=== PATIENT | female | born 1940 | race Asian ===

== ENCOUNTER 2017-01-02 09:00 | Outpatient (CLI) | payer MEDICARE, OTHER | END 2017-01-02 09:01 | disposition home or self-care (01) | DX: J98.4 Other disorders of lung (principal) ==

== ENCOUNTER 2017-02-06 09:02 | Outpatient (CLI) | payer MEDICARE, OTHER ==
[2017-02-06] MEDS ORDERED: IOPAMIDOL-300 50 ML VIAL IVP ONE (11:06)
== END 2017-02-06 09:03 | disposition home or self-care (01) ==
DX: R91.1 Solitary pulmonary nodule (principal); E78.5 Hyperlipidemia, unspecified; J43.9 Emphysema, unspecified
CPT/HCPCS: 36415; 71260; 80053; 80061; 85025; Q9967

== ENCOUNTER 2017-10-03 11:32 | Outpatient (CLI) | payer MEDICARE, OTHER ==
--- NOTE | 2017-10-05 08:34 | Mammography Report ---
EXAM: DIGITAL BILATERAL SCREENING MAMMOGRAM: 10/04/2017 CLINICAL INDICATION: A 77-year-old, for screening. COMPARISON: 08/2016, 06/2015, 04/2014, 04/2013, 03/2012, 03/2011, 03/2010. TECHNIQUE: Routine CC and MLO projections were obtained of the breasts. FINDINGS: The breasts again demonstrate heterogeneously dense fibroglandular parenchyma bilaterally. Coarse, typically benign calcifications are present. No suspicious masses, clustered microcalcifications, or regions of architectural distortion are identified. IMPRESSION: BENIGN FINDINGS. RECOMMENDATIONS: Routine annual screening unless otherwise clinically indicated. BIRADS CATEGORY 2-BENIGN FINDINGS. STANDARD QUALIFYING STATEMENTS: 1. This examination was reviewed with the aid of Computer-Aided Detection (CAD). 2. A negative or benign imaging report should not delay biopsy if clinically suspicious findings are present. Consider surgical consultation if warranted. More than 5% of cancers are not identified by imaging. 3. Dense breasts may obscure an underlying neoplasm. TD: 10/04/2017 16:28 AJIT
== END 2017-10-03 11:33 | disposition home or self-care (01) ==
LOC: DI 11:32
PROVIDERS: ATTEND Physician Assistant Medical
DX: Z12.31 Encounter for screening mammogram for malignant neoplasm of breast (principal)
CPT/HCPCS: 77067

== ENCOUNTER 2018-02-10 16:44 | Inpatient (IN) | payer MEDICARE, OTHER ==
[2018-02-10] MEDS ORDERED: MORPHINE 10 MG/ML VIAL IVP STA (17:21)
--- NOTE | 2018-02-10 17:22 | ED Physician Documentation ---
PD HPI ABD PAIN - Stated complaint Stated Complaint: ABD PX - Chief complaint Chief Complaint: Abd Pain - History obtained from History obtained from: Patient - History of Present Illness Timing - onset: Today Timing - duration: Days (4) Timing - details: Gradual onset Pain level max: 8 Pain level now: 8 Quality: Aching, Pain Location: All over / everywhere Radiation: Other (non-radiating) Improved by: Other (nothing) Worsened by: Moving, Palpation Associated symptoms: No: Fever, Nausea, Vomiting, Hematemesis, Diarrhea, Constipation, Melena, Hematochezia, Dysuria, Hematuria Similar symptoms before: Has not had sx before Recently seen: Not recently seen Review of Systems Ten Systems: 10 systems reviewed and negative Constitutional: denies: Fever, Chills Ears: denies: Ear pain Nose: denies: Rhinorrhea / runny nose, Congestion Throat: denies: Sore throat Respiratory: denies: Cough GI: denies: Nausea, Vomiting, Diarrhea, Hematemesis, Bloody / black stool : denies: Dysuria Skin: denies: Rash Musculoskeletal: denies: Neck pain, Back pain Neurologic: denies: Headache PD PAST MEDICAL HISTORY - Past Medical History Cardiovascular: High cholesterol Respiratory: COPD Musculoskeletal: Osteoarthritis - Past Surgical History General: Appendectomy HEENT: Tonsil/Adenoidectomy - Present Medications Home Medications: Ambulatory Orders Medication Instructions Recorded Confirmed Albuterol [Proventil Hfa] 1 puffs INH Q4-6H 04/23/13 09/22/15 Multivitamin [Multivitamins] 1 each PO DAILY 04/23/13 09/22/15 Ipratropium/Albuterol Inhaler 1 puffs INH QID 04/24/13 09/22/15 [Combivent Inhaler] Potassium 500 mg PO DAILY 04/24/13 09/22/15 [place]-3 Fatty Acids [Fish Oil] 1,200 mg PO DAILY 09/22/15 09/22/15 - Allergies Allergies/Adverse Reactions: Allergies Allergy/AdvReac Type Severity Reaction Status Date / Time Penicillins Allergy Severe shock Verified 02/10/18 16:59 venom-honey bee Allergy unknown Verified 02/10/18 16:59 [bee venom (honey bee)] alcohol AdvReac unknown Verified 02/10/18 16:59 PD ED PE NORMAL - Vitals Vital signs reviewed: Yes - General General: Alert and oriented X 3, No acute distress - HEENT HEENT: Moist mucous membranes - Neck Neck: Supple, no meningeal sign - Cardiac Cardiac: RRR, Strong equal pulses - Respiratory Respiratory: No respiratory distress, Clear bilaterally - Abdomen Abdomen: Other (Diffusely tender to palpation. There is guarding and rebound) - Back Back: No CVA TTP, No spinal TTP - Derm Derm: Warm and dry, No rash - Extremities Extremities: No edema, No calf tenderness / cord - Neuro Neuro: Alert and oriented X 3 - Psych Psych: Normal mood, Normal affect Results - Vitals Vitals: Vital Signs - 24 hr 02/10/18 02/10/18 16:55 19:25 Temperature 36.8 C 36.4 C L Heart Rate 98 86 Respiratory 14 16 Rate Blood Pressure 130/39 L 120/67 O2 Saturation 98 93 Oxygen O2 Source Room air - Labs Labs: Laboratory Tests 02/10/18 02/10/18 02/10/18 17:30 17:30 18:03 WBC 9.3 RBC 4.18 L Hgb 13.7 Hct 40.7 MCV 97.4 MCH 32.8 H MCHC 33.7 RDW 13.2 Plt Count 284 MPV 7.3 L Neut # 7.7 H Lymph # 1.2 L Sunflower # 0.3 Eos # 0.1 Baso # 0.1 Absolute Nucleated RBC 0.01 Nucleated RBC % 0.1 Sodium 137 Potassium 3.3 L Chloride 101 Carbon Dioxide 27 Anion Gap 9.0 BUN 16 Creatinine 0.3 L Estimated GFR (MDRD) 216 Glucose 115 H Calcium 8.8 Total Bilirubin 0.2 AST 21 ALT 11 Alkaline Phosphatase 52 Total Protein 6.2 L Albumin 3.5 Globulin 2.7 Albumin/Globulin Ratio 1.3 Lipase 20 L Urine Color YELLOW Urine Clarity HAZY Urine pH 6.5 Ur Specific [place] 1.015 Urine Protein NEGATIVE Urine Glucose (UA) NEGATIVE Urine Ketones NEGATIVE Urine Occult Blood NEGATIVE Urine Nitrite NEGATIVE Urine Bilirubin NEGATIVE Urine Urobilinogen 0.2 (NORMAL) Ur Leukocyte Esterase NEGATIVE Urine RBC 0-5 Urine WBC 4-5 Ur Squamous Epith Cells MANY Squamous H Urine Bacteria Many H Ur Microscopic Review INDICATED Urine Culture Comments NOT INDICATED - Rads (name of study) CT abd/pelvis Radiology: Prelim report reviewed, EMP read contemporaneously, See rad report ( Small volume pneumoperitoneum indicating hollow viscus perforation. The site of perforation is not identified. Evaluation is limited by marked paucity of intra- abdominal fat. Pancolonic diverticulosis. No convincing area of focal colon wall thickening. ) PD MEDICAL DECISION MAKING - ED course Complexity details: reviewed results, re-evaluated patient, considered differential, d/w patient, d/w family, d/w [facility] consultant (1840 - Dr. Hammer ( surgery bone char operator) and recommends IV cipro and flagyl. Will be in to see pt and take to OR.) ED course: Patient is a 77-year-old female who presents to the emergency department with peritonitis. Has pneumoperitoneum, likely from a hollow viscus perforation. She has anaphylactic to penicillin, therefore discussed antibiotic choice with Dr. Hammer, surgery on-call who recommends Cipro and Flagyl. This was given to the patient. Pain well controlled. 2 IVs were started and IV fluids given. Dr. Hammer will take her to the operating room. This document was made in part using voice recognition software. While efforts are made to proofread this document, sound alike and grammatical errors may occur. Departure - Departure Disposition: [facility] DC/Rosalind Clinical Impression: Perforated abdominal viscus Condition: Stable Discharge Date/Time: 02/10/18 20:10
[2018-02-10] MEDS ORDERED: IOPAMIDOL-300 50 ML VIAL ONE (17:32)
[2018-02-10] MEDS ORDERED: IOPAMIDOL-300 100 ML VIAL ONE (17:33)
[2018-02-10] MEDS ORDERED: IOPAMIDOL-300 50 ML VIAL PO ONE (17:40)
[2018-02-10] MEDS: IOPAMIDOL-300 100 ML VIAL IVP ONE ×3 (17:41→18:28)
[2018-02-10 17:49] LABS: BASOPHILS # (AUTO) 0.1 10^3/uL (0.0-0.1); BASOPHILS % (AUTO) 0.7 %; EOSINOPHILS # (AUTO) 0.1 10^3/uL (0.0-0.7); HGB - HEMOGLOBIN 13.7 g/dL (12.0-16.0); LYMPHOCYTES # (AUTO) 1.2 10^3/uL (1.5-3.5); LYMPHOCYTES % (AUTO) 13.1 %; MEAN CORPUSCULAR HEMOGLOBIN 32.8 pg (27.0-31.0); MEAN CORPUSCULAR HGB CONC 33.7 g/dL (32.0-36.0); MEAN CORPUSCULAR VOLUME 97.4 fL (81.0-99.0); MEAN PLATELET VOLUME 7.3 fL (7.9-10.8); MONOCYTES # (AUTO) 0.3 10^3/uL (0.0-1.0); MONOCYTES % (AUTO) 2.7 %; NEUTROPHILS # (AUTO) 7.7 10^3/uL (1.5-6.6); NEUTROPHILS % (AUTO) 82.5 %; PLT - PLATELET COUNT 284 10^3/uL (130-450); RED BLOOD COUNT 4.18 10^6/uL (4.20-5.40); RED CELL DISTRIBUTION WIDTH 13.2 % (12.0-15.0); WHITE BLOOD COUNT 9.3 x10^3/uL (4.8-10.8)
[2018-02-10 18:03] LABS: ALBUMIN 3.5 g/dL (3.2-5.5); ALBUMIN/GLOBULIN RATIO 1.3 (1.0-2.2); BILIRUBIN,TOTAL 0.2 mg/dL (0.2-1.0); CALCIUM 8.8 mg/dL (8.5-10.3); CREATININE 0.3 mg/dL (0.4-1.0); TOTAL PROTEIN 6.2 g/dL (6.7-8.2)
[2018-02-10 18:09] LABS: BILIRUBIN,URINE NEGATIVE (NEGATIVE); GLUCOSE, URINE (UA) NEGATIVE (NEGATIVE); KETONES,URINE (UA) NEGATIVE (NEGATIVE); LEUKOCYTE ESTERASE, URINE NEGATIVE (NEGATIVE); NITRITE,URINE NEGATIVE (NEGATIVE); OCCULT BLOOD,URINE NEGATIVE (NEGATIVE); PH,URINE 6.5 PH (5.0-7.5); PROTEIN,URINE NEGATIVE (NEGATIVE); UROBILINOGEN,URINE 0.2 (NORMAL) E.U./dL (NORMAL)
[2018-02-10 18:12] LABS: CLARITY,URINE HAZY (CLEAR)
[2018-02-10 18:25] LABS: BACTERIA,URINE Many /HPF (None Seen); RBC,URINE 0-5 /HPF (0-5); SQUAMOUS EPITHELIAL CELL,UR MANY Squamous (<= Few)
[2018-02-10] MEDS ORDERED: metroNIDAZOLE 500 MG/100 ML 500 MG/100 ML BAG IV ONE (18:43)
[2018-02-10] MEDS ORDERED: cefOXitin 1 GM in SODIUM CHLORIDE 0.9% MINIBAG 100 ML IV STA (18:43)
[2018-02-10] MEDS ORDERED: SODIUM CHLORIDE 0.9% 1,000 ML IV ONE (18:45)
[2018-02-10] MEDS ORDERED: CIPROFLOXACIN 400 MG/200 ML 200 ML IV ONE (18:45)
--- NOTE | 2018-02-10 19:08 | CT Report ---
EXAM: CT ABDOMEN AND PELVIS EXAM DATE: 02/10/2018 06:24 PM. CLINICAL HISTORY: Diffuse abdominal pain COMPARISONS: 07/10/2015. TECHNIQUE: Routine helical CT imaging was performed through the abdomen and pelvis. IV contrast: 100 mL Isovue-300. Enteric contrast: Yes. Reconstructions: Coronal and sagittal. In accordance with CT protocol optimization, one or more of the following dose reduction techniques w ere utilized for this exam: automated exposure control, adjustment of mA and/or KV based on patient s ize, or use of iterative reconstructive technique. FINDINGS: Lung Bases: Unremarkable. Liver: Similar distribution of innumerable tiny cystic foci scattered throughout the liver. Gallbladder/Bile Ducts: No gallbladder distention or visualized stones. Unchanged borderline dilated CBD measuring 7 mm (upper limits normal 6 mm), not unusual at this patient's age. Spleen: Normal. Pancreas: Normal. Adrenal Glands: Normal. Kidneys and Ureters: Multiple small bilateral renal cysts. Mild right hydronephrosis extending to the renal pelvis, without evident obstructing lesion or stone. Peritoneal Cavity/Bowel: Small volume scattered pneumoperitoneum, most pronounced beneath the hemidia phragms. Enteric contrast reaches the mid small bowel. Pancolonic diverticulosis. Limited evaluation of the colon wall due to marked paucity of intra-abdominal fat and absence of enteric contrast in the area. No convincing focal colon wall thickening. No focal extravasation of enteric contrast is seen. Scattered mildly dilated loops of small bowel interspersed with normal caliber loops, likely represe nting ileus. The appendix is not seen. Pelvic Organs: The bladder and visualized pelvic organs are within normal limits. Vasculature: Extensive atherosclerotic calcifications within the aorta and iliac arteries. Bones: Mild right convex curvature centered at L2-L3. Moderate to severe multilevel facet arthropathy in the mid/lower lumbar spine with unchanged associated grade 1 anterolisthesis at L4-L5. No acute b garett abnormality. Other: None. IMPRESSION: 1. Small volume pneumoperitoneum indicating hollow viscus perforation. The site of perforation is not identified. Evaluation is limited by marked paucity of intra-abdominal fat. 2. Pancolonic diverticulosis. No convincing area of focal colon wall thickening. RADIA The above findings were discussed with Sandro Segura by Dr. Alissa Barnes at 18:59 Hrs on 02/10/18. Referring Provider Line: [phone] SITE ID: [id number]
[2018-02-10] MEDS ORDERED: BUPIVACAINE 0.25%-EPI 1:200000 PF 30 ML VIAL ONE (20:28)
[2018-02-10] MEDS ORDERED: SODIUM CHLORIDE FLUSH 0.9% 10 ML SYRINGE IVP PRN (20:56)
[2018-02-10] MEDS ORDERED: NEOSTIGMINE 1 MG/1 ML 10 ML MDV IVP ONE (21:00)
[2018-02-10] MEDS ORDERED: PROPOFOL 200 MG/20 ML VIAL IVP ONE (21:00)
[2018-02-10] MEDS ORDERED: LIDOCAINE-MPF 2% 5 ML VIAL IM ONE (21:00)
[2018-02-10] MEDS ORDERED: DEXAMETHASONE 4 MG/ML VIAL IVP ONE (21:00)
[2018-02-10] MEDS ORDERED: ePHEDrine 50 MG/ML AMP IVP ONE (21:00)
[2018-02-10] MEDS ORDERED: FLUMAZENIL 0.1 MG/1 ML 5 ML MDV IVP ONE ×2 (21:00→23:25)
[2018-02-10] MEDS ORDERED: GLYCOPYRROLATE 1 MG/5 ML VIAL IVP ONE (21:00)
[2018-02-10] MEDS ORDERED: SUCCINYLCHOLINE 200 MG/10 ML VIAL IVP ONE (21:00)
[2018-02-10] MEDS ORDERED: ACETAMINOPHEN 1,000 MG/100 ML VIAL IV ONE (21:00)
[2018-02-10] MEDS ORDERED: fentaNYL 100 MCG/2 ML VIAL IVP ONE (21:00)
[2018-02-10] MEDS ORDERED: PHENYLEPHRINE 50 MG/5 ML VIAL IV ONE (21:00)
[2018-02-10] MEDS ORDERED: MIDAZOLAM 2 MG/2 ML VIAL IVP ONE (21:00)
[2018-02-10] MEDS ORDERED: ROCURONIUM 50 MG/5 ML VIAL IVP ONE (21:00)
[2018-02-10] MEDS ORDERED: BUPIVACAINE 0.25%-EPI 1:200000 PF 10 ML VIAL SUBQ ONE ×2 (21:01)
[2018-02-10] MEDS ORDERED: LACTATED RINGERS 1,000 ML IV ONE ×2 (21:02→22:49)
[2018-02-10] MEDS ORDERED: TEMAZEPAM 15 MG CAPSULE PO PRN (21:27)
[2018-02-10] MEDS ORDERED: IPRATROPIUM 0.2 MG/ML NEB INH PRN (21:27)
[2018-02-10] MEDS ORDERED: PANTOPRAZOLE 40 MG VIAL IVP ONE (21:32)
[2018-02-10] MEDS ORDERED: PANTOPRAZOLE 40 MG VIAL ONE (21:33)
[2018-02-10] MEDS ORDERED: IPRATROPIUM/ALBUTEROL 3 ML NEB INH PRN (21:52)
[2018-02-10] MEDS ORDERED: D5.45NS W/20 MEQ KCL 1,000 ML IV SCH (22:00)
[2018-02-10] MEDS ORDERED: ONDANSETRON 4 MG/2 ML VIAL IVP PRN (23:02)
[2018-02-10] MEDS ORDERED: HYDROmorphone 0.5 MG/0.5 ML SYRINGE IVP PRN ×2 (23:02→23:05)
[2018-02-10] MEDS ORDERED: HYDROmorphone 0.5 MG/0.5 ML SYRINGE ONE (23:03)
[2018-02-10] MEDS ORDERED: ALBUTEROL INH SCH (23:15)
[2018-02-10] MEDS ORDERED: ALBUTEROL 6.7 GM INHALER INH SCH (23:15)
[2018-02-10] MEDS ORDERED: IPRATROPIUM INH SCH (23:15)
[2018-02-10] MEDS ORDERED: NS W/20 MEQ KCL 1,000 ML IV SCH (23:45)
[2018-02-10] MEDS ORDERED: NICOTINE 7 MG PATCH TOP SCH (23:45)
--- NOTE | 2018-02-10 23:53 | OPERATIVE REPORT ---
DATE OF SERVICE: 02/10/2018 Physician: Diego Hammer MD PREOPERATIVE DIAGNOSIS: Perforated viscus. POSTOPERATIVE DIAGNOSES 1. Perforated prepyloric gastric ulcer with diffuse peritonitis. 2. Bilateral inguinal hernias. NAME OF PROCEDURE 1. Laparoscopic omental patch of prepyloric ulcer. 2. Esophagogastroduodenoscopy with biopsy, with this report dictated separately. OPERATING SURGEON: Diego Hammer MD ANESTHESIA: General. INDICATIONS FOR PROCEDURE: Patient is a 77-year-old female who presents with a 5-day history of abdominal pain. It became more severe today, and therefore, she came to the hospital. CT scan of the abdomen and pelvis shows free air with no obvious source of her perforation. She is on aspirin 325 mg daily, along with smoking. FINDINGS AT SURGERY: Patient had a 1 cm perforated prepyloric ulcer. It was repaired with an omental patch. Upon performing the esophagogastroduodenoscopy, there was no air leak noted from the patch closure. Patient had bilateral inguinal hernias being present, containing no intra-abdominal structures. PROCEDURE: After informed consent was obtained, patient was taken to the operating room and placed in supine position. General endotracheal anesthesia was administered. Patient's abdomen was then prepped and draped in the usual sterile fashion. An infraumbilical incision was made in the skin using a scalpel. A 12 mm Optiview trocar was then inserted through the incision, through to the fascia, and into abdominal cavity under direct vision. The abdomen was then insufflated. Looking inside, no injuries were noted. A 5 mm port was placed on either side of the midline under direct vision. Looking inside, there is free purulent fluid throughout the abdomen, which was suctioned out. Patient was found to have a perforated prepyloric ulcer anteriorly. A fourth port was placed in the left lower quadrant, being 5 mm in size. Next, using interrupted 3-0 Vicryl sutures, sutures were placed transversely, seromuscular, proximal and distal to the perforated ulcer. Next, an end of omentum was then brought up over top of the ulcer with the sutures then being tied. Next, an esophagogastroduodenoscopy was then performed. It did not show any narrowing of the pylorus. The ulcer was closed. There was no air leak noted from the closure site. The EGD was then completed with op note done separately to this note. The abdomen was then copiously irrigated until the return fluid was clear. A 19 round CYDNEY drain was placed through one of the port sites on the right side and up by the closure site. It was secured to the skin using 3-0 nylon suture. The ports were then removed. No bleeding was noted at the port sites, with the abdomen then being desufflated. The umbilical fascial defect was closed using 0 Vicryl sutures. Skin incisions were closed using 4-0 Monocryl subcuticular stitch. Dermabond was then placed upon the incision sites. Patient was then awakened and taken from the operating room, intubated. ESTIMATED BLOOD LOSS: 25 mL COMPLICATIONS: None. CONDITION OF PATIENT AT END OF PROCEDURE: Stable. SPECIMENS: Fluid for Gram stain, culture and sensitivity. DRAINS OR PACKS: One drain was left intra-abdominally. CLASSIFICATION OF WOUND: Dirty. TD: 02/10/2018 23:52 AJIT
--- NOTE | 2018-02-11 00:09 | HISTORY & PHYSICAL EXAMINATION ---
Chief Complaint - Chief Complaint Chief Complaint: Abdominal pain History of Present Illness - Admitted From Admitted From:: home - History Obtained From History obtained from: patient, son, ED physician - History of Present Illness HPI Comment/Other: Mrs. Alison Javed is a pleasant 77-year-old lady who unfortunately has been having some abdominal pain over the last several days. Her son lives out of town and relates that she has been come complaining of dyspepsia and constipation for about 4 days. He also notes that a few weeks ago the patient began complaining of not feeling right and she has not gotten back to her baseline since then. In part because of her recent complaints her son came to see her today and while he was visiting the patient complained of some significant abdominal pain. She took some aspirin and laid down but the pain continued to worsen and so the son brought her to the [facility] emergency department where it was found that she has a perforated bowel. Mrs. Javed also has a long history of COPD and continues to smoke despite this. The patient has been taken to the operating room for surgical repair and will be admitted to the intensive care unit following her surgery. History - Past Medical History Cardiovascular: reports: High cholesterol Respiratory: reports: COPD, Emphysema Musculoskeletal: reports: Osteoarthritis - Past Surgical History General: reports: Appendectomy HEENT: reports: Tonsil/Adenoidectomy - Family & Social History Family History: Mother: (The father was quite elderly and of natural causes according to the patient's son. There is no history of hypertension, hypercholesterolemia, myocardial infarction, CVA, or diabetes to the best of his knowledge), Cancer, Father: Living arrangement: At home Living Situation: Alone - Substance History Use: Uses substance without health or social issues: NONE Abuse: Recurrent use of substance despite neg consequences: NONE Dependence: Experiences withdrawal or developed tolerances: Tobacco Tobacco Details: Cigarettes - POLST Patient has POLST: No POLST Status: Full Code Meds/Allgy - Home Medications Home Medications: Ambulatory Orders Medication Instructions Recorded Confirmed Albuterol [Proventil Hfa] 1 puffs INH Q4-6H 04/23/13 09/22/15 Multivitamin [Multivitamins] 1 each PO DAILY 04/23/13 09/22/15 Ipratropium/Albuterol Inhaler 1 puffs INH QID 04/24/13 09/22/15 [Combivent Inhaler] Potassium 500 mg PO DAILY 04/24/13 09/22/15 [place]-3 Fatty Acids [Fish Oil] 1,200 mg PO DAILY 09/22/15 09/22/15 - Allergies Allergies/Adverse Reactions: Allergies Allergy/AdvReac Type Severity Reaction Status Date / Time Penicillins Allergy Severe shock Verified 02/10/18 16:59 venom-honey bee Allergy unknown Verified 02/10/18 16:59 [bee venom (honey bee)] alcohol AdvReac unknown Verified 02/10/18 16:59 Review of Systems - Constitutional Constitutional: reports: Fatigue. denies: Fever, Chills, Diaphoresis, Night sweats - Eyes Eyes: denies: Pain, Irritation, Amaurosis, Vision loss, Dipolpia - Ears, Nose & Throat Ears, Nose & Throat: denies: Ear pain, Hearing loss, Hearing aids, Vertigo, Nosebleeds - Cardiovascular Cariovascular: denies: Irregular heart rate, Palpitations, Chest pain, Edema, Syncope - Respiratory Respiratory: denies: Cough, Sputum production, Wheezing, Snoring, Hemoptysis, Orthopnea - Gastrointestinal Gastrointestinal: reports: Abdominal pain, Constipation, Nausea. denies: Abdominal distention, Change in bowel habits, Rectal bleeding, Bile emesis, Get blood emesis - Genitourinary Genitourinary: denies: Dysuria, Frequency, Urgency, Hematuria - Musculoskeletal Musculoskeletal: denies: Muscle pain, Back pain, Muscle aches, Stiffness - Integumentary Integumentary: denies: Rash, Pruritis, Lesions, Dryness - Neurological Neurological: denies: General weakness, Focal weakness, Headache, Dizziness - Psychiatric Psychiatric: denies: Depression, Anxiety, Suicidal, Hallucinations - Endocrine Endocrine: denies: Polyuria, Polydypsia, Polyphagia - Hematologic/Lymphatic Hematologic/Lymphatic: denies: Anemia, Bruising, Petechiae, Lymphadenopathy - All Other Systems All Other Systems: reports: Reviewed and negative Exam - Vital Signs Reviewed Vital Signs: Yes Vital Signs: Vital Signs x48h Pulse Resp BP Pulse Ox 02/10/18 20:10 84 16 131/73 H 92 - Physical Exam General Appearance: positive: No acute distress, Alert Eyes Bilateral: positive: Normal inspection, PERRL, EOMI, No lid inflammation, Conjunctivae nml, No scleral icterus ENT: positive: ENT inspection nml, Pharynx nml, No signs of dehydration Neck: positive: Nml inspection, Thyroid nml, No JVD, Trachea midline. negative : Thyromegaly Respiratory: positive: Chest non-tender, No respiratory distress, Breath sounds nml. negative: Wheezes, Rales, Rhonchi Cardiovascular: positive: Regular rate & rhythm, No murmur, No gallop Peripheral Pulses: positive: 1+ Abdomen: positive: Tenderness, Guarding, Rebound. negative: Hepatomegaly, Splenomegaly, Mass Back: positive: Nml inspection. negative: CVA tenderness (R), CVA tenderness (L ) Skin: positive: Color nml, No rash, Warm, Dry. negative: Cyanosis Extremities: positive: Non-tender, Full ROM, Nml appearance, No pedal edema Neurologic/Psychiatric: positive: Oriented x3, CN's nml (2-12), Motor nml, Sensation nml, Mood/affect nml Conclusion/Plan - Problem List (1) Perforated abdominal viscus Conclusion/Plan: Repaired by Dr. Primitivo Hammer this evening. The patient has been extubated but is still requiring BiPAP at this time. I have ordered IV antibiotics and will monitor closely over the next several days. She may need TPN as she will unlikely be able to feed for 4 or 5 days. (2) COPD (chronic obstructive pulmonary disease) with emphysema Conclusion/Plan: I have placed the patient on DuoNeb nebulizer treatments [id number] and we will consider giving her low-dose steroids if necessary. He has already been extubated and does not require supplemental oxygen at home. We will continue to monitor closely. - Lab Results Lab results reviewed: Yes Fish Bones: 02/10/18 17:30 02/10/18 17:30 - Diagnostic Imaging Results Diagnostic Imaging Results: positive: Final report reviewed Diagnostic Imaging Results Comments: EXAM: CT ABDOMEN AND PELVIS EXAM DATE: 02/10/2018 06:24 PM. CLINICAL HISTORY: Diffuse abdominal pain COMPARISONS: 07/10/2015. TECHNIQUE: Routine helical CT imaging was performed through the abdomen and pelvis. IV contrast: 100 mL Isovue-300. Enteric contrast: Yes. Reconstructions: Coronal and sagittal. In accordance with CT protocol optimization, one or more of the following dose reduction techniques were utilized for this exam: automated exposure control, adjustment of mA and/or KV based on patient size, or use of iterative reconstructive technique. FINDINGS: Lung Bases: Unremarkable. Liver: Similar distribution of innumerable tiny cystic foci scattered throughout the liver. Gallbladder/Bile Ducts: No gallbladder distention or visualized stones. Unchanged borderline dilated CBD measuring 7 mm (upper limits normal 6 mm), not unusual at this patient's age. Spleen: Normal. Pancreas: Normal. Adrenal Glands: Normal. Kidneys and Ureters: Multiple small bilateral renal cysts. Mild right hydronephrosis extending to the renal pelvis, without evident obstructing lesion or stone. Peritoneal Cavity/Bowel: Small volume scattered pneumoperitoneum, most pronounced beneath the hemidiaphragms. Enteric contrast reaches the mid small bowel. Pancolonic diverticulosis. Limited evaluation of the colon wall due to marked paucity of intra-abdominal fat and absence of enteric contrast in the area. No convincing focal colon wall thickening. No focal extravasation of enteric contrast is seen. Scattered mildly dilated loops of small bowel interspersed with normal caliber loops, likely representing ileus. The appendix is not seen. Pelvic Organs: The bladder and visualized pelvic organs are within normal limits. Vasculature: Extensive atherosclerotic calcifications within the aorta and iliac arteries. Bones: Mild right convex curvature centered at L2-L3. Moderate to severe multilevel facet arthropathy in the mid/lower lumbar spine with unchanged associated grade 1 anterolisthesis at L4- L5. No acute bony abnormality. Other: None. IMPRESSION: 1. Small volume pneumoperitoneum indicating hollow viscus perforation. The site of perforation is not identified. Evaluation is limited by marked paucity of intra-abdominal fat. 2. Pancolonic diverticulosis. No convincing area of focal colon wall thickening. Core Measures - Anticipated LOS I expect patient to be DC'd or transferred within 96 hours.: Yes - DVT/VTE - Prophylaxis VTE/DVT Device ordered at admit?: Yes
[2018-02-11] MEDS: NS W/20 MEQ KCL 1,000 ML IV SCH ×2 (00:12→15:00)
[2018-02-11] MEDS: ACETAMINOPHEN 1,000 MG/100 ML 100 ML IV SCH ×4 (00:12→17:25)
[2018-02-11] MEDS: CIPROFLOXACIN 400 MG/200 ML 200 ML IV SCH ×2 (00:15→11:44)
[2018-02-11] MEDS: NICOTINE 21 MG PATCH TOP SCH ×2 (00:18→10:06)
[2018-02-11] MEDS ORDERED: SODIUM CHLORIDE FLUSH 0.9% 10 ML SYRINGE IVP SCH (01:00)
[2018-02-11] MEDS: metroNIDAZOLE 500 MG/100 ML 500 MG/100 ML BAG IV SCH ×5 (01:26→17:45)
[2018-02-11] MEDS: SODIUM CHLORIDE FLUSH 0.9% 10 ML SYRINGE IVP SCH ×3 (01:32→17:26)
[2018-02-11] MEDS ORDERED: POTASSIUM CHLOR 10 MEQ/100 ML 10 MEQ/100 ML BAG IV SCH (05:00)
[2018-02-11 06:18] LABS: HGB - HEMOGLOBIN 11.9 g/dL (12.0-16.0); MEAN CORPUSCULAR HEMOGLOBIN 32.1 pg (27.0-31.0); MEAN CORPUSCULAR HGB CONC 32.3 g/dL (32.0-36.0); MEAN CORPUSCULAR VOLUME 99.2 fL (81.0-99.0); MEAN PLATELET VOLUME 7.1 fL (7.9-10.8); RED BLOOD COUNT 3.71 10^6/uL (4.20-5.40); RED CELL DISTRIBUTION WIDTH 13.4 % (12.0-15.0); WHITE BLOOD COUNT 12.6 x10^3/uL (4.8-10.8)
[2018-02-11 06:26] LABS: CALCIUM 7.2 mg/dL (8.5-10.3); CREATININE 0.6 mg/dL (0.4-1.0)
[2018-02-11] MEDS: PANTOPRAZOLE 40 MG VIAL IVP SCH (06:40)
[2018-02-11] MEDS: SODIUM CHLORIDE FLUSH 0.9% 10 ML SYRINGE IVP PRN (06:40)
[2018-02-11] MEDS ORDERED: CIPROFLOXACIN 400 MG/200 ML 200 ML IV SCH (07:00)
[2018-02-11] MEDS ORDERED: FAMOTIDINE 20 MG/50 ML 50 ML IV SCH (09:00)
[2018-02-11] MEDS ORDERED: metroNIDAZOLE 500 MG/100 ML 500 MG/100 ML BAG IV SCH (10:00)
[2018-02-11] MEDS: ALBUTEROL NEB 2.5 MG/3 ML INH SCH ×4 (11:00→22:27)
[2018-02-11] MEDS ORDERED: levoFLOXacin 500 MG/100 ML 500 MG/100 ML BAG IV SCH (16:00)
--- NOTE | 2018-02-11 17:13 | XRAY Preliminary Report ---
Exam: XR CHEST 1 VIEW X-RAY IMPRESSION: 1. COPD. 2. New subcutaneous emphysema in the bilateral chest wall and lower neck. RADIA The above findings were discussed with Dr. Hammer by Dr. Alissa Barnes at 17:11 hrs on 02/11/18. SITE ID: [id number]
--- NOTE | 2018-02-11 17:14 | XRAY Report ---
EXAM: CHEST RADIOGRAPHY EXAM DATE: 02/11/2018 04:49 PM. CLINICAL HISTORY: Hemoptysis vs hematemesis, desaturation. COMPARISON: Chest radiograph 01/14/2013. CT chest 02/06/2017. CT abdomen/pelvis 02/10/2018. TECHNIQUE: 1 view. FINDINGS: Lungs/Pleura: Hyperexpansion, compatible with known COPD. No focal opacities are evident. No pleural effusion or pneumothorax. Mediastinum: Heart size is normal. The aorta is mildly tortuous and contains atherosclerotic calcific ations, as before. Other: An enteric tube terminates in the proximal stomach with the side-port in the GE junction regio n. A surgical drain terminates in the upper abdomen. New subcutaneous emphysema in the bilateral ches t wall and lower neck. Old fracture from any of the left posterolateral ninth rib. IMPRESSION: 1. COPD. 2. New subcutaneous emphysema in the bilateral chest wall and lower neck. RADIA The above findings were discussed with Dr. Hammer by Dr. Alissa Barnes at 17:11 hrs on 02/11/18. Referring Provider Line: [phone] SITE ID: [id number]
--- NOTE | 2018-02-11 17:24 | PROVIDER PROGRESS NOTE ---
Assessment/Plan - Problem List (1) Perforated gastric ulcer Qualifiers: Gastric ulcer chronicity: acute Qualified Code(s): K25.1 - Acute gastric ulcer with perforation Assessment/Plan: POD #1. Dr Jerry Hammer following and told RN that when Pt starts mobilizing her 3rd spaced fluids, urine output will increase. Continue present care. Incentive Spirometry ordered. (2) COPD (chronic obstructive pulmonary disease) Assessment/Plan: Pt is a heavy smoker of 1 and 1/2 - 2 PPD. Nicotine patch is helping suppress urges. Needs supplemental O2 May need nebs or Mucinex . (3) Hemoptysis Assessment/Plan: Will get a CXR, which was not done pre-op. Pt may need nebs and Mucinex. Watch WBC and Temp. - Current Meds Current Meds: Current Medications Generic Name Dose Route Start Last Admin Trade Name Freq PRN Reason Stop Dose Admin Metronidazole 500 mg in 100 mls @ 100 mls/hr 02/10/18 23:45 02/11/18 13:40 Flagyl 500 Mg/100 Ml IV 02/14/18 18:59 Infused Q6HR LEAH Infusion Acetaminophen 100 mls @ 400 mls/hr 02/10/18 23:45 02/11/18 11:35 Ofirmev IV Infused Q6H LEAH Infusion Potassium Chloride/Sodium Chloride 1,000 mls @ 70 mls/hr 02/10/18 23:45 02/11 17:00 Normal Saline 0.9% W/20 Meq Kcl IV 70 mls/hr .[id number] LEAH Infusion Nicotine 1 patch 02/10/18 22:00 02/11/18 10:06 Nicoderm TOP 1 patch DAILY LEAH Administration Pantoprazole Sodium 40 mg 02/11/18 07:00 02/11/18 06:40 Protonix IVP 40 mg QDAC LEAH Administration Sodium Chloride 10 ml 02/11/18 01:00 02/11/18 10:15 Normal Saline Flush 0.9% IVP 10 ml 0100,[id number],[id number] LEAH Administration Sodium Chloride 10 ml 02/10/18 23:02 02/11/18 06:40 Normal Saline Flush 0.9% IVP 10 ml PRN PRN Administration NEEDED PER PROVIDER ORDERS - Lab Result Fish Bone Diagrams: 02/11/18 06:00 02/11/18 06:00 - Additional Planning My Orders: My Active Orders 02/12/18 05:00 BNP - B-NATRIURETIC PEPTIDE [IAI] Routine Subjective - Subjective Patient Reports: Resting Comfortably, Other (Has pain when moves or coughs.) Nursing Reports: Other (Desats when on R.A. to 88%. Urine output is 20-40 cc/ hr. Has coughed up dark red phlegm several times.) Objective Vital Signs: Vital Signs - 24 hr 02/10/18 02/10/18 02/10/18 20:10 23:36 23:40 Temperature Heart Rate 84 Heart Rate [ Monitoring electrodes] Respiratory 16 Rate Blood Pressure 131/73 H Blood Pressure [Right Brachial artery] O2 Saturation 92 100 100 02/10/18 02/10/18 02/10/18 23:46 23:50 23:54 Temperature Heart Rate Heart Rate [ Monitoring electrodes] Respiratory Rate Blood Pressure Blood Pressure [Right Brachial artery] O2 Saturation 100 100 100 02/11/18 02/11/18 02/11/18 00:00 00:10 00:15 Temperature Heart Rate Heart Rate [ 71 72 68 Monitoring electrodes] Respiratory 15 15 15 Rate Blood Pressure Blood Pressure 83/46 L 82/45 L 81/45 L [Right Brachial artery] O2 Saturation 100 100 100 02/11/18 02/11/18 02/11/18 00:30 00:45 01:00 Temperature Heart Rate Heart Rate [ 67 66 65 Monitoring electrodes] Respiratory 14 14 14 Rate Blood Pressure Blood Pressure 83/46 L 85/48 L 89/52 L [Right Brachial artery] O2 Saturation 100 100 100 02/11/18 02/11/18 02/11/18 01:15 01:30 02:00 Temperature Heart Rate Heart Rate [ 63 64 61 Monitoring electrodes] Respiratory 13 14 14 Rate Blood Pressure Blood Pressure 91/54 L 102/56 L 98/59 L [Right Brachial artery] O2 Saturation 100 100 100 02/11/18 02/11/18 02/11/18 03:00 04:00 05:00 Temperature 36.5 C Heart Rate Heart Rate [ 66 59 L 59 L Monitoring electrodes] Respiratory 19 13 13 Rate Blood Pressure Blood Pressure 110/60 117/50 L 112/58 L [Right Brachial artery] O2 Saturation 100 100 100 02/11/18 02/11/18 02/11/18 06:00 07:00 08:00 Temperature 97.1 C H 36.4 C L Heart Rate Heart Rate [ 68 68 71 Monitoring electrodes] Respiratory 15 15 14 Rate Blood Pressure Blood Pressure 118/56 L 93/51 L 111/58 L [Right Brachial artery] O2 Saturation 100 100 100 02/11/18 02/11/18 02/11/18 09:00 10:00 11:00 Temperature Heart Rate Heart Rate [ 74 77 74 Monitoring electrodes] Respiratory 12 16 12 Rate Blood Pressure Blood Pressure 100/51 L 98/51 L 99/50 L [Right Brachial artery] O2 Saturation 99 100 97 02/11/18 02/11/18 02/11/18 11:59 13:00 14:00 Temperature 36.9 C Heart Rate Heart Rate [ 76 72 72 Monitoring electrodes] Respiratory 13 17 18 Rate Blood Pressure Blood Pressure 103/52 L 93/50 L 98/49 L [Right Brachial artery] O2 Saturation 97 99 99 02/11/18 02/11/18 02/11/18 15:00 16:00 17:00 Temperature Heart Rate Heart Rate [ 84 78 86 Monitoring electrodes] Respiratory 18 17 16 Rate Blood Pressure Blood Pressure 107/50 L 108/50 L 115/54 L [Right Brachial artery] O2 Saturation 92 98 97 Oxygen O2 Source Nasal cannula I&O (Last 24 Hrs): Intake and Output Totals x24h 02/09/18 02/10/18 02/11/18 23:59 23:59 23:59 Intake Total 438 2370 Output Total 1405 Balance 438 965 General: Alert, Oriented x3 HEENT: Mucous membr. moist/pink Neck: Supple, No JVD Neuro: Non Focal Cardiovascular: Regular rate, No murmurs Respiratory: No respiratory distress Abdomen: Soft, Other (Decreased bowel sounds) Extremities: No edema - Results Results: Laboratory Results WBC 12.6 x10^3/uL (4.8-10.8) H 02/11/18 06:00 RBC 3.71 10^6/uL (4.20-5.40) L 02/11/18 06:00 Hgb 11.9 g/dL (12.0-16.0) L 02/11/18 06:00 Hct 36.8 % (37.0-47.0) L 02/11/18 06:00 MCV 99.2 fL (81.0-99.0) H 02/11/18 06:00 MCH 32.1 pg (27.0-31.0) H 02/11/18 06:00 MCHC 32.3 g/dL (32.0-36.0) 02/11/18 06:00 RDW 13.4 % (12.0-15.0) 02/11/18 06:00 Plt Count 243 10^3/uL (130-450) 02/11/18 06:00 MPV 7.1 fL (7.9-10.8) L 02/11/18 06:00 Neut # 7.7 10^3/uL (1.5-6.6) H 02/10/18 17:30 Lymph # 1.2 10^3/uL (1.5-3.5) L 02/10/18 17:30 [place] # 0.3 10^3/uL (0.0-1.0) 02/10/18 17:30 Eos # 0.1 10^3/uL (0.0-0.7) 02/10/18 17:30 Baso # 0.1 10^3/uL (0.0-0.1) 02/10/18 17:30 Absolute Nucleated RBC 0.01 x10^3/uL 02/10/18 17:30 Nucleated RBC % 0.1 /100WBC 02/10/18 17:30 Sodium 129 mmol/L (135-145) L 02/11/18 06:00 Potassium 4.3 mmol/L (3.5-5.0) 02/11/18 06:00 Chloride 96 mmol/L (101-111) L 02/11/18 06:00 Carbon Dioxide 27 mmol/L (21-32) 02/11/18 06:00 Anion Gap 6.0 (6-13) 02/11/18 06:00 BUN 12 mg/dL (6-20) 02/11/18 06:00 Creatinine 0.6 mg/dL (0.4-1.0) 02/11/18 06:00 Estimated GFR (MDRD) 97 (>89) 02/11/18 06:00 Glucose 128 mg/dL (70-100) H 02/11/18 06:00 Lactic Acid 1.1 mmol/L (0.5-2.2) 02/11/18 06:00 Calcium 7.2 mg/dL (8.5-10.3) L 02/11/18 06:00 Total Bilirubin 0.2 mg/dL (0.2-1.0) 02/10/18 17:30 AST 21 IU/L (10-42) 02/10/18 17:30 ALT 11 IU/L (10-60) 02/10/18 17:30 Alkaline Phosphatase 52 IU/L (42-121) 02/10/18 17:30 Total Protein 6.2 g/dL (6.7-8.2) L 02/10/18 17:30 Albumin 3.5 g/dL (3.2-5.5) 02/10/18 17:30 Globulin 2.7 g/dL (2.1-4.2) 02/10/18 17:30 Albumin/Globulin Ratio 1.3 (1.0-2.2) 02/10/18 17:30 Lipase 20 U/L (22-51) L 02/10/18 17:30 Urine Color YELLOW 02/10/18 18:03 Urine Clarity HAZY (CLEAR) 02/10/18 18:03 Urine pH 6.5 PH (5.0-7.5) 02/10/18 18:03 Ur Specific [place] 1.015 (1.002-1.030) 02/10/18 18:03 Urine Protein NEGATIVE mg/dL (NEGATIVE) 02/10/18 18:03 Urine Glucose (UA) NEGATIVE mg/dL (NEGATIVE) 02/10/18 18:03 Urine Ketones NEGATIVE mg/dL (NEGATIVE) 02/10/18 18:03 Urine Occult Blood NEGATIVE (NEGATIVE) 02/10/18 18:03 Urine Nitrite NEGATIVE (NEGATIVE) 02/10/18 18:03 Urine Bilirubin NEGATIVE (NEGATIVE) 02/10/18 18:03 Urine Urobilinogen 0.2 (NORMAL) E.U./dL (NORMAL) 02/10/18 18:03 Ur Leukocyte Esterase NEGATIVE (NEGATIVE) 02/10/18 18:03 Urine RBC 0-5 /HPF (0-5) 02/10/18 18:03 Urine WBC 4-5 /HPF (0-5) 02/10/18 18:03 Ur Squamous Epith Cells MANY Squamous (<= Few) H 02/10/18 18:03 Urine Bacteria Many /HPF (None Seen) H 02/10/18 18:03 Ur Microscopic Review INDICATED 02/10/18 18:03 Urine Culture Comments NOT INDICATED 02/10/18 18:03 Blood Type O POSITIVE 02/10/18 19:58 Blood Type Recheck O POSITIVE 02/10/18 17:30 Antibody Screen NEGATIVE 02/10/18 19:58 - Procedures Procedures: Procedures CATARAC PHACOEMULS/ASPIR (04/24/13) INSERT LENS AT CATAR EXT (04/24/13) REPLACEMENT OF LEFT LENS WITH SYNTH SUB, PERC APPROACH (09/23/15)
--- NOTE | 2018-02-11 20:48 | HISTORY & PHYSICAL EXAMINATION ---
DATE OF SERVICE: 02/10/2018 Physician: Diego Hammer MD REASON FOR CONSULTATION: Abdominal pain. HISTORY OF PRESENT ILLNESS: The patient is a 77-year-old female who has been having upper abdominal pain for the last 5 days. The patient does have reflux symptoms and occasionally takes Tums. However, this pain was persistent and became very acute today. Because of this, she was brought to the emergency room to be evaluated. She has had nausea and vomiting, throwing up just what she had eaten. She has had mild constipation. PAST MEDICAL HISTORY 1. COPD. 2. Arthritis. 3. Hypercholesterolemia. 4. Emphysema. PAST SURGICAL HISTORY: Tonsillectomy and adenoidectomy. SOCIAL HISTORY: Patient lives with her son. FAMILY HISTORY: Mother with cancer of unknown etiology. HABITS: Patient smokes a pack of cigarettes a day. MEDICATIONS 1. Proventil. 2. Combivent. 3. Potassium. 4. Aspirin. ALLERGIES 1. PENICILLIN. 2. ALCOHOL. REVIEW OF SYSTEMS GASTROINTESTINAL: No abdominal pain, nausea, vomiting. PULMONARY: Shortness of breath. A 12-point review of systems was obtained with pertinent positives discussed and all others being negative. PHYSICAL EXAMINATION VITAL SIGNS: Blood pressure is 120/67, heart rate 86, respiratory rate 16, temperature is 36.4. GENERAL: Patient is lying in bed. She is a little somnolent, but is able to be awake and answer questions. Her son is also here to answer any questions the patient may not be able to. HEENT: Eyes nonicteric. NECK: No lymphadenopathy. HEART: Regular. LUNGS: Diminished in the bases. ABDOMEN: Nondistended. Tender throughout with peritoneal signs. No hernias. EXTREMITIES: No edema. No cyanosis. NEUROLOGIC: Patient appears to be neurologically intact without any deficits. PSYCHOLOGICAL: Patient is coherent, cooperative, appears to answer questions fully. DIAGNOSTIC DATA: Sodium 137, potassium 3.3, creatinine of 0.3, hemoglobin of 14 , white blood cell count of 9.3. CT scan of the abdomen and pelvis shows free air with no etiology being able to be appreciated. ASSESSMENT 1. Abdominal pain secondary to probable perforated viscus with the patient having free air. I recommend she undergo a diagnostic laparoscopy, possible ulcer surgery, possible bowel surgery, possible ostomy, possible laparotomy. The risks and possible complications of the procedure have been explained to the patient and her son. These include, but are not limited to bleeding, infection, anesthesia risk, heart or lung problems, wound healing problems, , hernia formation, anastomotic leak, ostomy problems such as parastomal hernia or prolapse, continued infection intra-abdominally, re-perforation and anesthesia risks, heart and lung failure. They accept the risks and wished to proceed with the procedure. 2. Chronic obstructive pulmonary disease, on inhalers. 3. Tobacco dependency. PLAN 1. NPO. 2. IV fluids. 3. IV antibiotics. 4. Diagnostic laparoscopy, possible ulcer surgery, possible bowel surgery, possible ostomy, possible exploratory laparotomy. TD: 02/11/2018 20:46 AJIT
[2018-02-11] MEDS: KETOROLAC 15 MG/ML VIAL IVP PRN (20:53)
--- NOTE | 2018-02-12 00:15 | PROVIDER PROGRESS NOTE ---
Subjective - General Admit Date: 02/10/18 - Review of Systems Wound/Incisions: positive: Healing well General: positive: No symptoms All Other Systems: positive: Reviewed and negative Objective - Patient Data Vital Signs: Vital Signs x48h Temp Pulse Pulse Resp BP Pulse Ox 02/11/18 23:00 93 19 114/58 L 96 02/11/18 22:30 84 23 02/11/18 22:00 78 16 124/76 97 02/11/18 21:00 36.9 C 73 16 114/54 L 99 02/11/18 20:00 77 16 112/51 L 100 02/11/18 19:00 87 15 111/41 L 99 02/11/18 18:15 91 18 02/11/18 18:00 88 15 111/52 L 94 02/11/18 17:00 86 16 115/54 L 97 Weight: Weight 02/10/18 02/11/18 02/12/18 23:59 23:59 23:59 Weight (kg) 40.5 kg 42.5 kg Intake & Output: Intake and Output Totals x24h 02/10/18 02/11/18 02/12/18 23:59 23:59 23:59 Intake Total 438 2720 Output Total 1602 Balance 438 1118 - Lab Results Lab Results: 02/11/18 06:00 02/11/18 06:00 Other Lab Results: Lab Results x24hrs 02/11/18 02/11/18 02/11/18 Range/Units 06:00 06:00 06:00 WBC 12.6 H (4.8-10.8) x10^3/uL RBC 3.71 L (4.20-5.40) 10^6/uL Hgb 11.9 L (12.0-16.0) g/dL Hct 36.8 L (37.0-47.0) % MCV 99.2 H (81.0-99.0) fL MCH 32.1 H (27.0-31.0) pg MCHC 32.3 (32.0-36.0) g/dL RDW 13.4 (12.0-15.0) % Plt Count 243 (130-450) 10^3/uL MPV 7.1 L (7.9-10.8) fL Sodium 129 L (135-145) mmol/L Potassium 4.3 (3.5-5.0) mmol/L Chloride 96 L (101-111) mmol/L Carbon Dioxide 27 (21-32) mmol/L Anion Gap 6.0 (6-13) BUN 12 (6-20) mg/dL Creatinine 0.6 (0.4-1.0) mg/dL Estimated GFR (MDRD) 97 (>89) Glucose 128 H (70-100) mg/dL Lactic Acid 1.1 (0.5-2.2) mmol/L Calcium 7.2 L (8.5-10.3) mg/dL - Current Medications Current Medications: Current Medications Generic Name Dose Route Start Last Admin Trade Name Freq PRN Reason Stop Dose Admin Albuterol 2.5 mg 02/11/18 07:00 02/11/18 22:27 INH 2.5 mg RTQ4H LEAH Administration Metronidazole 500 mg in 100 mls @ 100 mls/hr 02/10/18 23:45 02/11/18 18:50 Flagyl 500 Mg/100 Ml IV 02/14/18 18:59 Infused Q6HR LEAH Infusion Acetaminophen 100 mls @ 400 mls/hr 02/10/18 23:45 02/11/18 17:40 Ofirmev IV Infused Q6H LEAH Infusion Potassium Chloride/Sodium Chloride 1,000 mls @ 70 mls/hr 02/10/18 23:45 02/11 19:00 Normal Saline 0.9% W/20 Meq Kcl IV 70 mls/hr .[id number] LEAH Infusion Ketorolac Tromethamine 15 mg 02/10/18 23:02 02/11/18 20:53 Toradol Inj IVP 02/15/18 23:01 15 mg Q6H PRN Administration PAIN 1-3/10 Nicotine 1 patch 02/10/18 22:00 02/11/18 10:06 Nicoderm TOP 1 patch DAILY LEAH Administration Pantoprazole Sodium 40 mg 02/11/18 07:00 02/11/18 06:40 Protonix IVP 40 mg QDAC LEAH Administration Sodium Chloride 10 ml 02/11/18 01:00 02/11/18 17:26 Normal Saline Flush 0.9% IVP 10 ml 0100,0900,1700 LEAH Administration Sodium Chloride 10 ml 02/10/18 23:02 02/11/18 06:40 Normal Saline Flush 0.9% IVP 10 ml PRN PRN Administration NEEDED PER PROVIDER ORDERS - Physical Exam Respiratory: positive: No respiratory distress Cardiovascular: positive: Regular rate & rhythm Abdomen: positive: Other (abdominal incision clean without evidence of infection brant ruq) Impression/Plan - Problem List Problem List: s/p laparoscopic omental patch perforated gastric ulcer POD#1. \ Doing well Await H pylori andrews test Continue iv antibiotics npo ngt mobilize patient.
[2018-02-12] MEDS: ACETAMINOPHEN 1,000 MG/100 ML 100 ML IV SCH ×5 (00:24→23:49)
[2018-02-12] MEDS: metroNIDAZOLE 500 MG/100 ML 500 MG/100 ML BAG IV SCH ×5 (00:25→23:55)
[2018-02-12] MEDS: SODIUM CHLORIDE FLUSH 0.9% 10 ML SYRINGE IVP SCH ×4 (00:25→17:50)
[2018-02-12 04:59] LABS: HGB - HEMOGLOBIN 11.8 g/dL (12.0-16.0); MEAN CORPUSCULAR HEMOGLOBIN 32.6 pg (27.0-31.0); MEAN CORPUSCULAR HGB CONC 33.2 g/dL (32.0-36.0); MEAN CORPUSCULAR VOLUME 98.1 fL (81.0-99.0); MEAN PLATELET VOLUME 6.8 fL (7.9-10.8); RED BLOOD COUNT 3.63 10^6/uL (4.20-5.40); RED CELL DISTRIBUTION WIDTH 13.5 % (12.0-15.0); WHITE BLOOD COUNT 10.4 x10^3/uL (4.8-10.8)
[2018-02-12 05:05] LABS: CALCIUM 7.5 mg/dL (8.5-10.3); CREATININE 0.5 mg/dL (0.4-1.0)
[2018-02-12] MEDS: NS W/20 MEQ KCL 1,000 ML IV SCH ×2 (06:14→23:49)
[2018-02-12 06:26] LABS: VBG PH 7.416 (7.31-7.41)
[2018-02-12] MEDS: PANTOPRAZOLE 40 MG VIAL IVP SCH (06:37)
[2018-02-12] MEDS: ALBUTEROL NEB 2.5 MG/3 ML INH SCH (07:53)
[2018-02-12] MEDS ORDERED: CALCIUM GLUCONATE 1,000 MG in SODIUM CHLORIDE 0.9% 50 ML IV ONE (08:00)
[2018-02-12] MEDS ORDERED: BENZOCAINE SPRAY MM PRN (09:31)
[2018-02-12] MEDS: ENOXAPARIN 30 MG/0.3 ML SYRINGE SUBQ SCH (09:41)
[2018-02-12] MEDS: NICOTINE 21 MG PATCH TOP SCH (09:41)
--- NOTE | 2018-02-12 12:53 | PROVIDER PROGRESS NOTE ---
Assessment/Plan - Problem List (1) Perforated gastric ulcer Qualifiers: Gastric ulcer chronicity: acute Qualified Code(s): K25.1 - Acute gastric ulcer with perforation Assessment/Plan: POD#3. Surgeon wants 2 more days of ng drainage. Will check if he wants tpn started. Continue peripheral iv hydration. (2) COPD (chronic obstructive pulmonary disease) Assessment/Plan: Continue supportive care and Nicotine patch. (3) Hemoptysis Assessment/Plan: Resolved and may have been from ET tube and ng tube. - Current Meds Current Meds: Current Medications Generic Name Dose Route Start Last Admin Trade Name Freq PRN Reason Stop Dose Admin Albuterol 2.5 mg 02/11/18 07:00 02/12/18 07:53 INH 2.5 mg RTQ4H LEAH Administration Albuterol/Ipratropium 3 ml 02/10/18 21:52 02/12/18 02:41 Duoneb INH 3 ml RTQID PRN Administration Shortness of Air/Wheezing Enoxaparin Sodium 30 mg 02/12/18 09:00 02/12/18 09:41 Lovenox SUBQ 30 mg DAILY LEAH Administration Metronidazole 500 mg in 100 mls @ 100 mls/hr 02/10/18 23:45 02/12/18 12:46 Flagyl 500 Mg/100 Ml IV 02/14/18 18:59 100 mls/hr Q6HR LEAH Administration Acetaminophen 100 mls @ 400 mls/hr 02/10/18 23:45 02/12/18 12:19 Ofirmev IV 400 mls/hr Q6H LEAH Administration Potassium Chloride/Sodium Chloride 1,000 mls @ 70 mls/hr 02/10/18 23:45 02/12 10:00 Normal Saline 0.9% W/20 Meq Kcl IV 70 mls/hr .[id number] LEAH Infusion Ketorolac Tromethamine 15 mg 02/10/18 23:02 02/11/18 20:53 Toradol Inj IVP 02/15/18 23:01 15 mg Q6H PRN Administration PAIN 1-3/10 Nicotine 1 patch 02/10/18 22:00 02/12/18 09:41 Nicoderm TOP 1 patch DAILY LEAH Administration Pantoprazole Sodium 40 mg 02/11/18 07:00 04/30/18 06:37 Protonix IVP 40 mg QDAC LEAH Administration Sodium Chloride 10 ml 02/11/18 01:00 02/12/18 12:26 Normal Saline Flush 0.9% IVP 10 ml 0100,0900,1700 LEAH Administration Sodium Chloride 10 ml 02/10/18 23:02 02/11/18 06:40 Normal Saline Flush 0.9% IVP 10 ml PRN PRN Administration NEEDED PER PROVIDER ORDERS - Lab Result Fish Bone Diagrams: 02/12/18 04:40 02/12/18 04:40 Subjective - Subjective Patient Reports: Feeling Better Nursing Reports: Other (Less abdominal pain. Confused and can't remember her surgery.) Objective Vital Signs: Vital Signs - 24 hr 02/11/18 02/11/18 02/11/18 13:00 14:00 15:00 Temperature Heart Rate Heart Rate [ 72 72 84 Monitoring electrodes] Respiratory 17 18 18 Rate Blood Pressure 93/50 L 98/49 L 107/50 L [Right Brachial artery] O2 Saturation 99 99 92 02/11/18 02/11/18 02/11/18 16:00 17:00 18:00 Temperature Heart Rate Heart Rate [ 78 86 88 Monitoring electrodes] Respiratory 17 16 15 Rate Blood Pressure 108/50 L 115/54 L 111/52 L [Right Brachial artery] O2 Saturation 98 97 94 02/11/18 02/11/18 02/11/18 18:15 19:00 20:00 Temperature Heart Rate 91 Heart Rate [ 87 77 Monitoring electrodes] Respiratory 18 15 16 Rate Blood Pressure 111/41 L 112/51 L [Right Brachial artery] O2 Saturation 99 100 02/11/18 02/11/18 02/11/18 21:00 22:00 22:30 Temperature 36.9 C Heart Rate 84 Heart Rate [ 73 78 Monitoring electrodes] Respiratory 16 16 23 Rate Blood Pressure 114/54 L 124/76 [Right Brachial artery] O2 Saturation 99 97 02/11/18 02/12/18 02/12/18 23:00 00:00 01:00 Temperature 35.9 C L Heart Rate Heart Rate [ 93 82 81 Monitoring electrodes] Respiratory 19 20 20 Rate Blood Pressure 114/58 L 117/53 L 112/55 L [Right Brachial artery] O2 Saturation 96 98 100 02/12/18 02/12/18 02/12/18 02:00 02:48 03:00 Temperature Heart Rate 82 Heart Rate [ 85 81 Monitoring electrodes] Respiratory 12 16 20 Rate Blood Pressure 113/54 L 116/55 L [Right Brachial artery] O2 Saturation 97 100 02/12/18 02/12/18 02/12/18 04:00 05:00 06:00 Temperature 36.5 C Heart Rate Heart Rate [ 80 90 91 Monitoring electrodes] Respiratory 17 19 18 Rate Blood Pressure 129/54 L 128/53 L 123/54 L [Right Brachial artery] O2 Saturation 99 100 98 02/12/18 02/12/18 02/12/18 07:00 07:58 08:02 Temperature 36.9 C Heart Rate 93 Heart Rate [ 77 96 Monitoring electrodes] Respiratory 19 18 26 H Rate Blood Pressure 121/61 121/61 [Right Brachial artery] O2 Saturation 100 94 02/12/18 09:00 Temperature Heart Rate Heart Rate [ 97 Monitoring electrodes] Respiratory 21 Rate Blood Pressure 126/57 L [Right Brachial artery] O2 Saturation 99 Oxygen O2 Source Nasal cannula I&O (Last 24 Hrs): Intake and Output Totals x24h 02/10/18 02/11/18 02/12/18 23:59 23:59 23:59 Intake Total 438 2720 1483.667 Output Total 1622 1790 Balance 438 1098 -306.333 General: Cooperative, Other (Disoriented) HEENT: Mucous membr. moist/pink Neck: Supple, No JVD Neuro: Disoriented, Non Focal Cardiovascular: Regular rate, No murmurs Respiratory: No respiratory distress Abdomen: Soft, Other (Decreased bowel sounds) Extremities: No edema - Results Results: Laboratory Results WBC 10.4 x10^3/uL (4.8-10.8) 02/12/18 04:40 RBC 3.63 10^6/uL (4.20-5.40) L 02/12/18 04:40 Hgb 11.8 g/dL (12.0-16.0) L 02/12/18 04:40 Hct 35.6 % (37.0-47.0) L 02/12/18 04:40 MCV 98.1 fL (81.0-99.0) 02/12/18 04:40 MCH 32.6 pg (27.0-31.0) H 02/12/18 04:40 MCHC 33.2 g/dL (32.0-36.0) 02/12/18 04:40 RDW 13.5 % (12.0-15.0) 02/12/18 04:40 Plt Count 267 10^3/uL (130-450) 02/12/18 04:40 MPV 6.8 fL (7.9-10.8) L 02/12/18 04:40 Neut # 7.7 10^3/uL (1.5-6.6) H 02/10/18 17:30 Lymph # 1.2 10^3/uL (1.5-3.5) L 02/10/18 17:30 [place] # 0.3 10^3/uL (0.0-1.0) 02/10/18 17:30 Eos # 0.1 10^3/uL (0.0-0.7) 02/10/18 17:30 Baso # 0.1 10^3/uL (0.0-0.1) 02/10/18 17:30 Absolute Nucleated RBC 0.01 x10^3/uL 02/10/18 17:30 Nucleated RBC % 0.1 /100WBC 02/10/18 17:30 VBG pH 7.416 (7.31-7.41) H 02/12/18 06:19 Ionized Calcium 1.06 mmol/L (1.15-1.33) L 02/12/18 06:19 Sodium 134 mmol/L (135-145) L 02/12/18 04:40 Potassium 3.7 mmol/L (3.5-5.0) 02/12/18 04:40 Chloride 104 mmol/L (101-111) 02/12/18 04:40 Carbon Dioxide 22 mmol/L (21-32) 02/12/18 04:40 Anion Gap 8.0 (6-13) 02/12/18 04:40 BUN 15 mg/dL (6-20) 02/12/18 04:40 Creatinine 0.5 mg/dL (0.4-1.0) 02/12/18 04:40 Estimated GFR (MDRD) 120 (>89) 02/12/18 04:40 Glucose 76 mg/dL (70-100) 02/12/18 04:40 Lactic Acid 0.8 mmol/L (0.5-2.2) 02/12/18 04:40 Calcium 7.5 mg/dL (8.5-10.3) L 02/12/18 04:40 Total Bilirubin 0.2 mg/dL (0.2-1.0) 02/10/18 17:30 AST 21 IU/L (10-42) 02/10/18 17:30 ALT 11 IU/L (10-60) 02/10/18 17:30 Alkaline Phosphatase 52 IU/L (42-121) 02/10/18 17:30 B-Natriuretic Peptide 321 pg/mL (5-100) H 02/12/18 04:40 Total Protein 6.2 g/dL (6.7-8.2) L 02/10/18 17:30 Albumin 3.5 g/dL (3.2-5.5) 02/10/18 17:30 Globulin 2.7 g/dL (2.1-4.2) 02/10/18 17:30 Albumin/Globulin Ratio 1.3 (1.0-2.2) 02/10/18 17:30 Lipase 20 U/L (22-51) L 02/10/18 17:30 Urine Color YELLOW 02/10/18 18:03 Urine Clarity HAZY (CLEAR) 02/10/18 18:03 Urine pH 6.5 PH (5.0-7.5) 02/10/18 18:03 Ur Specific [place] 1.015 (1.002-1.030) 02/10/18 18:03 Urine Protein NEGATIVE mg/dL (NEGATIVE) 02/10/18 18:03 Urine Glucose (UA) NEGATIVE mg/dL (NEGATIVE) 02/10/18 18:03 Urine Ketones NEGATIVE mg/dL (NEGATIVE) 02/10/18 18:03 Urine Occult Blood NEGATIVE (NEGATIVE) 02/10/18 18:03 Urine Nitrite NEGATIVE (NEGATIVE) 02/10/18 18:03 Urine Bilirubin NEGATIVE (NEGATIVE) 02/10/18 18:03 Urine Urobilinogen 0.2 (NORMAL) E.U./dL (NORMAL) 02/10/18 18:03 Ur Leukocyte Esterase NEGATIVE (NEGATIVE) 02/10/18 18:03 Urine RBC 0-5 /HPF (0-5) 02/10/18 18:03 Urine WBC 4-5 /HPF (0-5) 02/10/18 18:03 Ur Squamous Epith Cells MANY Squamous (<= Few) H 02/10/18 18:03 Urine Bacteria Many /HPF (None Seen) H 02/10/18 18:03 Ur Microscopic Review INDICATED 02/10/18 18:03 Urine Culture Comments NOT INDICATED 02/10/18 18:03 Blood Type O POSITIVE 02/10/18 19:58 Blood Type Recheck O POSITIVE 02/10/18 17:30 Antibody Screen NEGATIVE 02/10/18 19:58 - Procedures Procedures: Procedures CATARAC PHACOEMULS/ASPIR (04/24/13) INSERT LENS AT CATAR EXT (04/24/13) REPLACEMENT OF LEFT LENS WITH SYNTH SUB, PERC APPROACH (09/23/15)
[2018-02-12] MEDS: IPRATROPIUM/ALBUTEROL 3 ML NEB INH PRN (14:35)
--- NOTE | 2018-02-12 16:14 | XRAY Report ---
FRONTAL CHEST: 02/12/2018 CLINICAL INDICATION: NG placement. COMPARISON: 02/11/2018. FINDINGS: Frontal view of the chest demonstrates a normal cardiac silhouette. Nasogastric tube terminates in the stomach, with the side port in the region of the gastroesophageal junction, stable. Surgical drain is again noted in the upper abdomen, pulled back from previous position. Subcutaneous gas in the right lateral thorax has decreased. No pneumothorax. Trace effusions. IMPRESSION: NASOGASTRIC TUBE TERMINATING IN THE STOMACH, WITH THE SIDE PORT AT THE LEVEL OF THE GASTROESOPHAGEAL JUNCTION. INTERVAL CHANGE IN POSITION OF SURGICAL DRAIN IN THE UPPER ABDOMEN. TD: 02/12/2018 16:14
[2018-02-12] MEDS: KETOROLAC 15 MG/ML VIAL IVP PRN (20:09)
[2018-02-12] MEDS: SODIUM CHLORIDE FLUSH 0.9% 10 ML SYRINGE IVP PRN ×2 (20:10→20:19)
[2018-02-12] MEDS ORDERED: BENZOCAINE/MENTHOL LOZENGE MM PRN (20:38)
[2018-02-12] MEDS ORDERED: CALAMINE/ZINC OXIDE 118 ML BOTTLE TOP PRN (20:38)
[2018-02-12] MEDS ORDERED: diphenhydrAMINE INJ 50 MG/ML VIAL IVP PRN (21:25)
[2018-02-12] MEDS: IPRATROPIUM/ALBUTEROL 3 ML NEB INH SCH (21:46)
--- NOTE | 2018-02-12 22:58 | XRAY Report ---
EXAM: CHEST RADIOGRAPHY EXAM DATE: 02/12/2018 10:33 PM. CLINICAL HISTORY: NG tube placement. COMPARISON: An earlier study of this same date. TECHNIQUE: 1 view. FINDINGS: Lungs/Pleura: Trace pleural effusions. No consolidation or pneumothorax. Mediastinum: Normal heart size, unchanged. Other: Nasogastric tube tip in body of stomach. IMPRESSION: NG tube tip in body of stomach. [facility] Referring Provider Line: [phone] SITE ID: [id number]
[2018-02-13] MEDS: SODIUM CHLORIDE FLUSH 0.9% 10 ML SYRINGE IVP SCH ×4 (01:45→23:46)
[2018-02-13] MEDS: ACETAMINOPHEN 1,000 MG/100 ML 100 ML IV SCH ×4 (05:11→23:46)
[2018-02-13] MEDS: metroNIDAZOLE 500 MG/100 ML 500 MG/100 ML BAG IV SCH ×4 (05:28→23:46)
[2018-02-13 06:05] LABS: HGB - HEMOGLOBIN 12.3 g/dL (12.0-16.0); MEAN CORPUSCULAR HEMOGLOBIN 32.1 pg (27.0-31.0); MEAN CORPUSCULAR HGB CONC 32.4 g/dL (32.0-36.0); MEAN CORPUSCULAR VOLUME 99.2 fL (81.0-99.0); MEAN PLATELET VOLUME 6.9 fL (7.9-10.8); RED BLOOD COUNT 3.84 10^6/uL (4.20-5.40); RED CELL DISTRIBUTION WIDTH 13.7 % (12.0-15.0); WHITE BLOOD COUNT 9.6 x10^3/uL (4.8-10.8)
[2018-02-13 06:17] LABS: CALCIUM 7.8 mg/dL (8.5-10.3); CREATININE 0.5 mg/dL (0.4-1.0)
[2018-02-13] MEDS: PANTOPRAZOLE 40 MG VIAL IVP SCH (06:51)
[2018-02-13] MEDS: D5.45NS W/20 MEQ KCL 1,000 ML IV SCH ×2 (06:55→22:41)
[2018-02-13] MEDS: NICOTINE 21 MG PATCH TOP SCH (08:31)
[2018-02-13] MEDS: ENOXAPARIN 30 MG/0.3 ML SYRINGE SUBQ SCH (08:31)
--- NOTE | 2018-02-13 08:31 | XRAY Report ---
EXAM: CHEST RADIOGRAPHY EXAM DATE: 02/13/2018 07:44 AM. CLINICAL HISTORY: NG tube placement. COMPARISON: 02/12/2018. 02/11/2018. TECHNIQUE: 1 view. FINDINGS: Lungs/Pleura: Left basilar opacity. Small pleural effusions. No pneumothorax. Mediastinum: Heart size and mediastinal contour are stable. Other: Orogastric tube again seen with the distal portion not visualized as it extends into the upper abdomen. Healed left-sided rib fracture. Left shoulder calcific tendinosis. IMPRESSION: 1. Left basilar consolidation/atelectasis with improvement. 2. Small pleural effusions. 3. Orogastric tube present extending into the upper abdomen although the tip is not visualized. [facility] Referring Provider Line: [phone] SITE ID: [id number]
[2018-02-13] MEDS: IPRATROPIUM/ALBUTEROL 3 ML NEB INH SCH ×3 (10:45→22:40)
--- NOTE | 2018-02-13 16:55 | PROVIDER PROGRESS NOTE ---
Assessment/Plan - Problem List (1) Perforated gastric ulcer Qualifiers: Gastric ulcer chronicity: acute Qualified Code(s): K25.1 - Acute gastric ulcer with perforation Assessment/Plan: POD#4. s/p laparoscopic omental patch perforated gastric ulcer Surgeon wants 1 more day of ng drainage. Dr Hammer does not want TPN or PPN as patient will likely be able to start diet tomorrow EGD tomorrow if stable then start diet COntinue IV PPI Continue peripheral iv hydration. CLOtest is positive patient will need treatment for H Pylori with flagyl, PPI and clarithormycin but given patient is NPO will give IV levaquin, IV flagyl and IV PPI till able to take PO meds (2) COPD (chronic obstructive pulmonary disease) Assessment/Plan: Continue supportive care and Nicotine patch. (3) Hemoptysis Assessment/Plan: Resolved and may have been from ET tube and ng tube. - Current Meds Current Meds: Current Medications Generic Name Dose Route Start Last Admin Trade Name Freq PRN Reason Stop Dose Admin Albuterol/Ipratropium 3 ml 02/12/18 19:00 02/13/18 14:10 Duoneb INH 3 ml RTTID LEAH Administration Albuterol/Ipratropium 3 ml 02/12/18 13:22 02/12/18 14:35 Duoneb INH 3 ml Q2HR PRN Administration Wheezing Benzocaine 1 sprays 02/12/18 09:31 02/12/18 15:12 Hurricaine MM 1 spray Q4HR PRN Administration Mouth Sore Pain Diphenhydramine HCl 25 mg 02/12/18 21:25 02/12/18 21:58 Benadryl Inj IVP 25 mg Q6H PRN Administration Allergy Symptoms Enoxaparin Sodium 30 mg 02/12/18 09:00 02/13/18 08:31 Lovenox SUBQ 30 mg DAILY LEAH Administration Metronidazole 500 mg in 100 mls @ 100 mls/hr 02/10/18 23:45 02/13/18 13:13 Flagyl 500 Mg/100 Ml IV 02/14/18 18:59 Infused Q6HR LEAH Infusion Acetaminophen 100 mls @ 400 mls/hr 02/10/18 23:45 02/13/18 12:05 Ofirmev IV Infused Q6H LEAH Infusion Levofloxacin 250 mg in 50 mls @ 50 mls/hr 02/12/18 16:00 02/13/18 16:24 Levaquin 250 Mg/50 Ml IV 50 mls/hr Q24H LEAH Administration Potassium Chloride/Dextrose/Sod Cl 1,000 mls @ 80 mls/hr 02/13/18 07:00 02/13 06:55 D5.45ns W/20 Meq Kcl IV 80 mls/hr .[id number] LEAH Administration Ketorolac Tromethamine 15 mg 02/10/18 23:02 02/12/18 20:09 Toradol Inj IVP 02/15/18 23:01 15 mg Q6H PRN Administration PAIN 1-3/10 Nicotine 1 patch 02/10/18 22:00 02/13/18 08:31 Nicoderm TOP 1 patch DAILY LEAH Administration Ondansetron HCl 4 mg 02/10/18 23:02 02/12/18 20:19 Zofran Inj IVP 4 mg Q6H PRN Administration Nausea / Vomiting Pantoprazole Sodium 40 mg 02/11/18 07:00 02/13/18 06:51 Protonix IVP 40 mg QDAC LEAH Administration Sodium Chloride 10 ml 02/11/18 01:00 02/13/18 16:30 Normal Saline Flush 0.9% IVP 10 ml [id number] LEAH Administration Sodium Chloride 10 ml 02/10/18 23:02 02/12/18 20:19 Normal Saline Flush 0.9% IVP 10 ml PRN PRN Administration NEEDED PER PROVIDER ORDERS - Lab Result Lab results reviewed: Yes Fish Bone Diagrams: 02/13/18 05:38 02/13/18 05:38 - Diagnostic Imaging Results Diagnostic Imaging Results: Final report reviewed - Additional Planning Condition/Complexity: Guarded My Orders: My Active Orders 02/13/18 18:00 CBC - COMP BLD CT W/AUTO DIFF [HEME] Timed CMP, RFLX TO IONIZED CA IF [CHEM] Routine LACTIC ACID, VENOUS [CHEM] Timed MAGNESIUM [CHEM] Timed PHOSPHORUS [CHEM] Timed Consult/Specialty: Surgery Plan Discussed with:: Patient Time Spent: 31-60 minutes Subjective - Subjective Patient Reports: Feeling Better, Resting Comfortably, No Complaints, Other ( Denies, abdominal pain or GI bleeding) Nursing Reports: No Complaints Objective Vital Signs: Vital Signs - 24 hr 02/12/18 02/12/18 02/12/18 18:30 20:30 21:47 Temperature 36.7 C Heart Rate 101 H Heart Rate [ 87 Monitoring electrodes] Respiratory 18 16 Rate Blood Pressure 130/55 L [Left Brachial artery] Blood Pressure [Right Brachial artery] O2 Saturation 99 96 02/13/18 02/13/18 02/13/18 00:24 06:00 07:54 Temperature 36.5 C 36.7 C 36.7 C Heart Rate Heart Rate [ 86 87 Monitoring electrodes] Respiratory 104 H 18 16 Rate Blood Pressure 149/63 H 154/64 H [Left Brachial artery] Blood Pressure 132/64 H [Right Brachial artery] O2 Saturation 16 L 94 95 02/13/18 02/13/18 02/13/18 10:45 11:00 14:10 Temperature 36.8 C Heart Rate 82 85 Heart Rate [ 99 Monitoring electrodes] Respiratory 20 16 24 Rate Blood Pressure 130/76 [Left Brachial artery] Blood Pressure [Right Brachial artery] O2 Saturation 94 02/13/18 15:00 Temperature 36.9 C Heart Rate Heart Rate [ 86 Monitoring electrodes] Respiratory 16 Rate Blood Pressure 148/57 H [Left Brachial artery] Blood Pressure [Right Brachial artery] O2 Saturation 100 Oxygen O2 Source Room air I&O (Last 24 Hrs): Intake and Output Totals x24h 02/11/18 02/12/18 02/13/18 23:59 23:59 23:59 Intake Total 2720 2707.000 1124 Output Total 1622 2415 50 Balance 1098 302.549 4696 General: Alert, Oriented x3, Cooperative, No acute distress HEENT: Atraumatic, PERRLA, EOMI, Other (Dry mucus membranes) Neck: Supple, No JVD Lymphatic: no adenopathy Neuro: Alert, Non Focal, CN 2-12 Grossly Intact, Oriented Times 3 Cardiovascular: Regular rate, Normal S1, Normal S2, No murmurs Respiratory: Chest non-tender, No respiratory distress, Breath sounds nml Abdomen: Normal bowel sounds, No tenderness Extremities: No clubbing, No cyanosis, No edema, Normal pulses Skin: No rashes, No breakdown - Results Results: Laboratory Results WBC 9.6 x10^3/uL (4.8-10.8) 02/13/18 05:38 RBC 3.84 10^6/uL (4.20-5.40) L 02/13/18 05:38 Hgb 12.3 g/dL (12.0-16.0) 02/13/18 05:38 Hct 38.1 % (37.0-47.0) 02/13/18 05:38 MCV 99.2 fL (81.0-99.0) H 02/13/18 05:38 MCH 32.1 pg (27.0-31.0) H 02/13/18 05:38 MCHC 32.4 g/dL (32.0-36.0) 02/13/18 05:38 RDW 13.7 % (12.0-15.0) 02/13/18 05:38 Plt Count 278 10^3/uL (130-450) 02/13/18 05:38 MPV 6.9 fL (7.9-10.8) L 02/13/18 05:38 Neut # 7.7 10^3/uL (1.5-6.6) H 02/10/18 17:30 Lymph # 1.2 10^3/uL (1.5-3.5) L 02/10/18 17:30 [place] # 0.3 10^3/uL (0.0-1.0) 02/10/18 17:30 Eos # 0.1 10^3/uL (0.0-0.7) 02/10/18 17:30 Baso # 0.1 10^3/uL (0.0-0.1) 02/10/18 17:30 Absolute Nucleated RBC 0.01 x10^3/uL 02/10/18 17:30 Nucleated RBC % 0.1 /100WBC 02/10/18 17:30 VBG pH 7.416 (7.31-7.41) H 02/12/18 06:19 Ionized Calcium 1.06 mmol/L (1.15-1.33) L 02/12/18 06:19 Sodium 135 mmol/L (135-145) 02/13/18 05:38 Potassium 3.7 mmol/L (3.5-5.0) 02/13/18 05:38 Chloride 104 mmol/L (101-111) 02/13/18 05:38 Carbon Dioxide 20 mmol/L (21-32) L 02/13/18 05:38 Anion Gap 11.0 (6-13) 02/13/18 05:38 BUN 12 mg/dL (6-20) 02/13/18 05:38 Creatinine 0.5 mg/dL (0.4-1.0) 02/13/18 05:38 Estimated GFR (MDRD) 120 (>89) 02/13/18 05:38 Glucose 57 mg/dL (70-100) L* 02/13/18 05:38 POC Whole Bld Glucose 105 mg/dL (70 - 100) H 02/13/18 16:07 Lactic Acid 0.8 mmol/L (0.5-2.2) 02/12/18 04:40 Calcium 7.8 mg/dL (8.5-10.3) L 02/13/18 05:38 Total Bilirubin 0.2 mg/dL (0.2-1.0) 02/10/18 17:30 AST 21 IU/L (10-42) 02/10/18 17:30 ALT 11 IU/L (10-60) 02/10/18 17:30 Alkaline Phosphatase 52 IU/L (42-121) 02/10/18 17:30 B-Natriuretic Peptide 321 pg/mL (5-100) H 02/12/18 04:40 Total Protein 6.2 g/dL (6.7-8.2) L 02/10/18 17:30 Albumin 3.5 g/dL (3.2-5.5) 02/10/18 17:30 Globulin 2.7 g/dL (2.1-4.2) 02/10/18 17:30 Albumin/Globulin Ratio 1.3 (1.0-2.2) 02/10/18 17:30 Lipase 20 U/L (22-51) L 02/10/18 17:30 Urine Color YELLOW 02/10/18 18:03 Urine Clarity HAZY (CLEAR) 02/10/18 18:03 Urine pH 6.5 PH (5.0-7.5) 02/10/18 18:03 Ur Specific [place] 1.015 (1.002-1.030) 02/10/18 18:03 Urine Protein NEGATIVE mg/dL (NEGATIVE) 02/10/18 18:03 Urine Glucose (UA) NEGATIVE mg/dL (NEGATIVE) 02/10/18 18:03 Urine Ketones NEGATIVE mg/dL (NEGATIVE) 02/10/18 18:03 Urine Occult Blood NEGATIVE (NEGATIVE) 02/10/18 18:03 Urine Nitrite NEGATIVE (NEGATIVE) 02/10/18 18:03 Urine Bilirubin NEGATIVE (NEGATIVE) 02/10/18 18:03 Urine Urobilinogen 0.2 (NORMAL) E.U./dL (NORMAL) 02/10/18 18:03 Ur Leukocyte Esterase NEGATIVE (NEGATIVE) 02/10/18 18:03 Urine RBC 0-5 /HPF (0-5) 02/10/18 18:03 Urine WBC 4-5 /HPF (0-5) 02/10/18 18:03 Ur Squamous Epith Cells MANY Squamous (<= Few) H 02/10/18 18:03 Urine Bacteria Many /HPF (None Seen) H 02/10/18 18:03 Ur Microscopic Review INDICATED 02/10/18 18:03 Urine Culture Comments NOT INDICATED 02/10/18 18:03 Blood Type O POSITIVE 02/10/18 19:58 Blood Type Recheck O POSITIVE 02/10/18 17:30 Antibody Screen NEGATIVE 02/10/18 19:58 - Procedures Procedures: Procedures CATARAC PHACOEMULS/ASPIR (04/24/13) INSERT LENS AT CATAR EXT (04/24/13) REPLACEMENT OF LEFT LENS WITH SYNTH SUB, PERC APPROACH (09/23/15)
[2018-02-13 18:06] LABS: BASOPHILS # (AUTO) 0.1 10^3/uL (0.0-0.1); BASOPHILS % (AUTO) 0.7 %; EOSINOPHILS # (AUTO) 0.1 10^3/uL (0.0-0.7); EOSINOPHILS % (AUTO) 1.1 %; HGB - HEMOGLOBIN 12.8 g/dL (12.0-16.0); LYMPHOCYTES # (AUTO) 1.2 10^3/uL (1.5-3.5); LYMPHOCYTES % (AUTO) 12.7 %; MEAN CORPUSCULAR HGB CONC 32.6 g/dL (32.0-36.0); MEAN CORPUSCULAR VOLUME 98.4 fL (81.0-99.0); MEAN PLATELET VOLUME 6.7 fL (7.9-10.8); MONOCYTES # (AUTO) 0.4 10^3/uL (0.0-1.0); MONOCYTES % (AUTO) 4.7 %; NEUTROPHILS # (AUTO) 7.4 10^3/uL (1.5-6.6); NEUTROPHILS % (AUTO) 80.8 %; PLT - PLATELET COUNT 284 10^3/uL (130-450); RED BLOOD COUNT 3.99 10^6/uL (4.20-5.40); RED CELL DISTRIBUTION WIDTH 13.7 % (12.0-15.0); WHITE BLOOD COUNT 9.2 x10^3/uL (4.8-10.8)
[2018-02-13 18:14] LABS: ALBUMIN/GLOBULIN RATIO 1.4 (1.0-2.2); ALKALINE PHOSPHATASE 46 IU/L (42-121); ALT ALANINE AMINOTRANSFERASE 14 IU/L (10-60); AST ASPARTATE AMINOTRANSFERASE 19 IU/L (10-42); BILIRUBIN,TOTAL 0.3 mg/dL (0.2-1.0); BUN - BLOOD UREA NITROGEN 9 mg/dL (6-20); CALCIUM 7.9 mg/dL (8.5-10.3); CARBON DIOXIDE - CO2 23 mmol/L (21-32); CHLORIDE 103 mmol/L (101-111); CREATININE 0.4 mg/dL (0.4-1.0); GFR - MDRD 155 (>89); GLUCOSE 110 mg/dL (70-100); SODIUM 133 mmol/L (135-145); TOTAL PROTEIN 5.2 g/dL (6.7-8.2)
[2018-02-13 18:15] LABS: MAGNESIUM 1.9 mg/dL (1.7-2.8); PHOSPHORUS 1.8 mg/dL (2.5-4.6)
[2018-02-13 18:18] LABS: VBG PH 7.432 (7.31-7.41)
[2018-02-14] MEDS: IPRATROPIUM/ALBUTEROL 3 ML NEB INH PRN (01:25)
[2018-02-14 05:35] LABS: HGB - HEMOGLOBIN 13.1 g/dL (12.0-16.0); MEAN CORPUSCULAR HEMOGLOBIN 32.7 pg (27.0-31.0); MEAN CORPUSCULAR HGB CONC 33.8 g/dL (32.0-36.0); MEAN PLATELET VOLUME 6.8 fL (7.9-10.8); RED CELL DISTRIBUTION WIDTH 13.4 % (12.0-15.0); WHITE BLOOD COUNT 8.2 x10^3/uL (4.8-10.8)
[2018-02-14 05:42] LABS: CALCIUM 7.7 mg/dL (8.5-10.3); CREATININE 0.4 mg/dL (0.4-1.0)
[2018-02-14] MEDS: ACETAMINOPHEN 1,000 MG/100 ML 100 ML IV SCH ×3 (06:04→21:08)
[2018-02-14] MEDS: metroNIDAZOLE 500 MG/100 ML 500 MG/100 ML BAG IV SCH ×3 (06:04→18:56)
[2018-02-14] MEDS: SODIUM CHLORIDE FLUSH 0.9% 10 ML SYRINGE IVP PRN ×2 (06:04→06:18)
[2018-02-14] MEDS: PANTOPRAZOLE 40 MG VIAL IVP SCH (06:04)
[2018-02-14] MEDS: IPRATROPIUM/ALBUTEROL 3 ML NEB INH SCH ×3 (07:34→17:53)
--- NOTE | 2018-02-14 08:35 | PROVIDER PROGRESS NOTE ---
Subjective - General Admit Date: 02/10/18 - Review of Systems Wound/Incisions: positive: Healing well General: positive: No symptoms Psychiatric: positive: Confusion All Other Systems: positive: Reviewed and negative Objective - Patient Data Vital Signs: Vital Signs x48h Temp Pulse Pulse Resp BP BP Pulse Ox 02/14/18 08:13 36.7 C 81 14 131/61 H 96 02/14/18 07:34 88 20 02/14/18 06:55 36.7 C 88 16 145/63 H 94 02/14/18 01:25 77 18 02/14/18 00:50 37.0 C 74 16 151/67 H 94 Weight: Weight 02/12/18 02/13/18 02/14/18 23:59 23:59 23:59 Weight (kg) 43.5 kg 38 kg 83 kg Intake & Output: Intake and Output Totals x24h 02/12/18 02/13/18 02/14/18 23:59 23:59 23:59 Intake Total 2707.000 2404 330 Output Total 2415 50 100 Balance 387.619 5270 230 - Lab Results Lab Results: 02/14/18 05:00 02/14/18 05:00 Other Lab Results: Lab Results x24hrs 02/14/18 02/14/18 02/13/18 Range/Units 05:00 05:00 17:54 WBC 8.2 (4.8-10.8) x10^3/uL RBC 4.00 L (4.20-5.40) 10^6/uL Hgb 13.1 (12.0-16.0) g/dL Hct 38.8 (37.0-47.0) % MCV 97.0 (81.0-99.0) fL MCH 32.7 H (27.0-31.0) pg MCHC 33.8 (32.0-36.0) g/dL RDW 13.4 (12.0-15.0) % Plt Count 298 (130-450) 10^3/uL MPV 6.8 L (7.9-10.8) fL Neut # (1.5-6.6) 10^3/uL Lymph # (1.5-3.5) 10^3/uL [place] # (0.0-1.0) 10^3/uL Eos # (0.0-0.7) 10^3/uL Baso # (0.0-0.1) 10^3/uL Absolute Nucleated RBC x10^3/uL Nucleated RBC % /100WBC VBG pH 7.432 H (7.31-7.41) Ionized Calcium 1.01 L (1.15-1.33) mmol/L Sodium 135 (135-145) mmol/L Potassium 3.1 L (3.5-5.0) mmol/L Chloride 105 (101-111) mmol/L Carbon Dioxide 24 (21-32) mmol/L Anion Gap 6.0 (6-13) BUN 7 (6-20) mg/dL Creatinine 0.4 (0.4-1.0) mg/dL Estimated GFR (MDRD) 155 (>89) Glucose 131 H (70-100) mg/dL POC Whole Bld Glucose (70 - 100) mg/dL Lactic Acid (0.5-2.2) mmol/L Calcium 7.7 L (8.5-10.3) mg/dL Phosphorus (2.5-4.6) mg/dL Magnesium (1.7-2.8) mg/dL Total Bilirubin (0.2-1.0) mg/dL AST (10-42) IU/L ALT (10-60) IU/L Alkaline Phosphatase (42-121) IU/L Total Protein (6.7-8.2) g/dL Albumin (3.2-5.5) g/dL Globulin (2.1-4.2) g/dL Albumin/Globulin Ratio (1.0-2.2) 02/13/18 02/13/18 02/13/18 Range/Units 17:54 17:54 17:54 WBC (4.8-10.8) x10^3/uL RBC (4.20-5.40) 10^6/uL Hgb (12.0-16.0) g/dL Hct (37.0-47.0) % MCV (81.0-99.0) fL MCH (27.0-31.0) pg MCHC (32.0-36.0) g/dL RDW (12.0-15.0) % Plt Count (130-450) 10^3/uL MPV (7.9-10.8) fL Neut # (1.5-6.6) 10^3/uL Lymph # (1.5-3.5) 10^3/uL [place] # (0.0-1.0) 10^3/uL Eos # (0.0-0.7) 10^3/uL Baso # (0.0-0.1) 10^3/uL Absolute Nucleated RBC x10^3/uL Nucleated RBC % /100WBC VBG pH (7.31-7.41) Ionized Calcium YES (1.15-1.33) mmol/L Sodium 133 L (135-145) mmol/L Potassium 3.7 (3.5-5.0) mmol/L Chloride 103 (101-111) mmol/L Carbon Dioxide 23 (21-32) mmol/L Anion Gap 7.0 (6-13) BUN 9 (6-20) mg/dL Creatinine 0.4 (0.4-1.0) mg/dL Estimated GFR (MDRD) 155 (>89) Glucose 110 H (70-100) mg/dL POC Whole Bld Glucose (70 - 100) mg/dL Lactic Acid 1.0 (0.5-2.2) mmol/L Calcium 7.9 L (8.5-10.3) mg/dL Phosphorus 1.8 L (2.5-4.6) mg/dL Magnesium 1.9 (1.7-2.8) mg/dL Total Bilirubin 0.3 (0.2-1.0) mg/dL AST 19 (10-42) IU/L ALT 14 (10-60) IU/L Alkaline Phosphatase 46 (42-121) IU/L Total Protein 5.2 L (6.7-8.2) g/dL Albumin 3.0 L (3.2-5.5) g/dL Globulin 2.2 (2.1-4.2) g/dL Albumin/Globulin Ratio 1.4 (1.0-2.2) 02/13/18 02/13/18 Range/Units 17:54 16:07 WBC 9.2 (4.8-10.8) x10^3/uL RBC 3.99 L (4.20-5.40) 10^6/uL Hgb 12.8 (12.0-16.0) g/dL Hct 39.2 (37.0-47.0) % MCV 98.4 (81.0-99.0) fL MCH 32.0 H (27.0-31.0) pg MCHC 32.6 (32.0-36.0) g/dL RDW 13.7 (12.0-15.0) % Plt Count 284 (130-450) 10^3/uL MPV 6.7 L (7.9-10.8) fL Neut # 7.4 H (1.5-6.6) 10^3/uL Lymph # 1.2 L (1.5-3.5) 10^3/uL [place] # 0.4 (0.0-1.0) 10^3/uL Eos # 0.1 (0.0-0.7) 10^3/uL Baso # 0.1 (0.0-0.1) 10^3/uL Absolute Nucleated RBC 0.00 x10^3/uL Nucleated RBC % 0.0 /100WBC VBG pH (7.31-7.41) Ionized Calcium (1.15-1.33) mmol/L Sodium (135-145) mmol/L Potassium (3.5-5.0) mmol/L Chloride (101-111) mmol/L Carbon Dioxide (21-32) mmol/L Anion Gap (6-13) BUN (6-20) mg/dL Creatinine (0.4-1.0) mg/dL Estimated GFR (MDRD) (>89) Glucose (70-100) mg/dL POC Whole Bld Glucose 105 H (70 - 100) mg/dL Lactic Acid (0.5-2.2) mmol/L Calcium (8.5-10.3) mg/dL Phosphorus (2.5-4.6) mg/dL Magnesium (1.7-2.8) mg/dL Total Bilirubin (0.2-1.0) mg/dL AST (10-42) IU/L ALT (10-60) IU/L Alkaline Phosphatase (42-121) IU/L Total Protein (6.7-8.2) g/dL Albumin (3.2-5.5) g/dL Globulin (2.1-4.2) g/dL Albumin/Globulin Ratio (1.0-2.2) - Current Medications Current Medications: Current Medications Generic Name Dose Route Start Last Admin Trade Name Freq PRN Reason Stop Dose Admin Albuterol/Ipratropium 3 ml 02/12/18 19:00 02/14/18 07:34 Duoneb INH 3 ml RTTID LEAH Administration Albuterol/Ipratropium 3 ml 02/12/18 13:22 02/14/18 01:25 Duoneb INH 3 ml Q2HR PRN Administration Wheezing Benzocaine 1 sprays 02/12/18 09:31 02/12/18 15:12 Hurricaine MM 1 spray Q4HR PRN Administration Mouth Sore Pain Diphenhydramine HCl 25 mg 02/12/18 21:25 02/12/18 21:58 Benadryl Inj IVP 25 mg Q6H PRN Administration Allergy Symptoms Enoxaparin Sodium 30 mg 02/12/18 09:00 02/13/18 08:31 Lovenox SUBQ 30 mg DAILY LEAH Administration Metronidazole 500 mg in 100 mls @ 100 mls/hr 02/10/18 23:45 02/14/18 06:04 Flagyl 500 Mg/100 Ml IV 02/14/18 18:59 100 mls/hr Q6HR LEAH Administration Acetaminophen 100 mls @ 400 mls/hr 02/10/18 23:45 02/14/18 06:35 Ofirmev IV Infused Q6H LEAH Infusion Levofloxacin 250 mg in 50 mls @ 50 mls/hr 02/12/18 16:00 02/13/18 17:25 Levaquin 250 Mg/50 Ml IV Infused Q24H LEAH Infusion Potassium Chloride/Dextrose/Sod Cl 1,000 mls @ 80 mls/hr 02/13/18 07:00 02/13 22:41 D5.45ns W/20 Meq Kcl IV 80 mls/hr .[id number] LEAH Administration Ketorolac Tromethamine 15 mg 02/10/18 23:02 02/12/18 20:09 Toradol Inj IVP 02/15/18 23:01 15 mg Q6H PRN Administration PAIN 1-3/10 Nicotine 1 patch 02/10/18 22:00 02/13/18 08:31 Nicoderm TOP 1 patch DAILY LEAH Administration Ondansetron HCl 4 mg 02/10/18 23:02 02/12/18 20:19 Zofran Inj IVP 4 mg Q6H PRN Administration Nausea / Vomiting Pantoprazole Sodium 40 mg 02/11/18 07:00 02/14/18 06:04 Protonix IVP 40 mg QDAC LEAH Administration Sodium Chloride 10 ml 02/11/18 01:00 02/13/18 23:46 Normal Saline Flush 0.9% IVP 10 ml 0100,0900,1700 LEAH Administration Sodium Chloride 10 ml 02/10/18 23:02 02/14/18 06:18 Normal Saline Flush 0.9% IVP 10 ml PRN PRN Administration NEEDED PER PROVIDER ORDERS - Physical Exam Wound/Incisions: positive: Healing well Abdomen: positive: Non-tender Impression/Plan - Problem List Problem List: s/p omental patch perforated gastric ulcer POD#3. Mild confusion overnight but better today. Had pulled out NGT which has not been replaced Continue NPO, NGT. Upper gi in am to ensure closure of the ulcer. Ambulate.
[2018-02-14] MEDS ORDERED: HYDROmorphone 1 MG/ML CARPUJECT IVP PRN (10:45)
[2018-02-14] MEDS: POTASSIUM CHLOR 10 MEQ/100 ML 10 MEQ/100 ML BAG IV SCH ×4 (11:03→14:49)
[2018-02-14] MEDS: ENOXAPARIN 30 MG/0.3 ML SYRINGE SUBQ SCH (11:08)
[2018-02-14] MEDS: SODIUM CHLORIDE FLUSH 0.9% 10 ML SYRINGE IVP SCH ×2 (11:08→16:58)
[2018-02-14] MEDS: NICOTINE 21 MG PATCH TOP SCH (11:08)
--- NOTE | 2018-02-14 11:39 | XRAY Report ---
UPPER GI: 02/14/2018 CLINICAL INDICATION: Status post repair of perforated prepyloric ulcer. FINDINGS: Initial safety representative view of the abdomen demonstrates residual contrast in the colon from previous CT. Surgical drain and nasogastric tube are noted. The nasogastric tube was injected, first with Gastrografin, then with thin barium. The proximal and mid portions of the stomach demonstrate a normal fold pattern. The distal stomach is deformed, likely postsurgical in nature. Contrast passes freely through the distal stomach and into the proximal small bowel with no evidence of contrast extravasation. IMPRESSION: NO EVIDENCE OF CONTRAST EXTRAVASATION FROM PATCHED ULCER. FLUOROSCOPY TIME: Two minutes 18 seconds; 13 spot images obtained. TD: 02/14/2018 11:37
--- NOTE | 2018-02-14 11:47 | PROVIDER PROGRESS NOTE ---
Subjective - General Admit Date: 02/10/18 - Review of Systems Wound/Incisions: positive: Healing well General: positive: No symptoms All Other Systems: positive: Reviewed and negative Objective - Patient Data Vital Signs: Vital Signs x48h Temp Pulse Pulse Resp BP BP Pulse Ox 02/14/18 08:13 36.7 C 81 14 131/61 H 96 02/14/18 07:34 88 20 02/14/18 06:55 36.7 C 88 16 145/63 H 94 Weight: Weight 02/12/18 02/13/18 02/14/18 23:59 23:59 23:59 Weight (kg) 43.5 kg 38 kg 83 kg Intake & Output: Intake and Output Totals x24h 02/12/18 02/13/18 02/14/18 23:59 23:59 23:59 Intake Total 2707.000 2404 430 Output Total 2415 50 100 Balance 605.738 6586 330 - Lab Results Lab Results: 02/14/18 05:00 02/14/18 05:00 Other Lab Results: Lab Results x24hrs 02/14/18 02/14/18 02/13/18 Range/Units 05:00 05:00 17:54 WBC 8.2 (4.8-10.8) x10^3/uL RBC 4.00 L (4.20-5.40) 10^6/uL Hgb 13.1 (12.0-16.0) g/dL Hct 38.8 (37.0-47.0) % MCV 97.0 (81.0-99.0) fL MCH 32.7 H (27.0-31.0) pg MCHC 33.8 (32.0-36.0) g/dL RDW 13.4 (12.0-15.0) % Plt Count 298 (130-450) 10^3/uL MPV 6.8 L (7.9-10.8) fL Neut # (1.5-6.6) 10^3/uL Lymph # (1.5-3.5) 10^3/uL [place] # (0.0-1.0) 10^3/uL Eos # (0.0-0.7) 10^3/uL Baso # (0.0-0.1) 10^3/uL Absolute Nucleated RBC x10^3/uL Nucleated RBC % /100WBC VBG pH 7.432 H (7.31-7.41) Ionized Calcium 1.01 L (1.15-1.33) mmol/L Sodium 135 (135-145) mmol/L Potassium 3.1 L (3.5-5.0) mmol/L Chloride 105 (101-111) mmol/L Carbon Dioxide 24 (21-32) mmol/L Anion Gap 6.0 (6-13) BUN 7 (6-20) mg/dL Creatinine 0.4 (0.4-1.0) mg/dL Estimated GFR (MDRD) 155 (>89) Glucose 131 H (70-100) mg/dL POC Whole Bld Glucose (70 - 100) mg/dL Lactic Acid (0.5-2.2) mmol/L Calcium 7.7 L (8.5-10.3) mg/dL Phosphorus (2.5-4.6) mg/dL Magnesium (1.7-2.8) mg/dL Total Bilirubin (0.2-1.0) mg/dL AST (10-42) IU/L ALT (10-60) IU/L Alkaline Phosphatase (42-121) IU/L Total Protein (6.7-8.2) g/dL Albumin (3.2-5.5) g/dL Globulin (2.1-4.2) g/dL Albumin/Globulin Ratio (1.0-2.2) 02/13/18 02/13/18 02/13/18 Range/Units 17:54 17:54 17:54 WBC (4.8-10.8) x10^3/uL RBC (4.20-5.40) 10^6/uL Hgb (12.0-16.0) g/dL Hct (37.0-47.0) % MCV (81.0-99.0) fL MCH (27.0-31.0) pg MCHC (32.0-36.0) g/dL RDW (12.0-15.0) % Plt Count (130-450) 10^3/uL MPV (7.9-10.8) fL Neut # (1.5-6.6) 10^3/uL Lymph # (1.5-3.5) 10^3/uL [place] # (0.0-1.0) 10^3/uL Eos # (0.0-0.7) 10^3/uL Baso # (0.0-0.1) 10^3/uL Absolute Nucleated RBC x10^3/uL Nucleated RBC % /100WBC VBG pH (7.31-7.41) Ionized Calcium YES (1.15-1.33) mmol/L Sodium 133 L (135-145) mmol/L Potassium 3.7 (3.5-5.0) mmol/L Chloride 103 (101-111) mmol/L Carbon Dioxide 23 (21-32) mmol/L Anion Gap 7.0 (6-13) BUN 9 (6-20) mg/dL Creatinine 0.4 (0.4-1.0) mg/dL Estimated GFR (MDRD) 155 (>89) Glucose 110 H (70-100) mg/dL POC Whole Bld Glucose (70 - 100) mg/dL Lactic Acid 1.0 (0.5-2.2) mmol/L Calcium 7.9 L (8.5-10.3) mg/dL Phosphorus 1.8 L (2.5-4.6) mg/dL Magnesium 1.9 (1.7-2.8) mg/dL Total Bilirubin 0.3 (0.2-1.0) mg/dL AST 19 (10-42) IU/L ALT 14 (10-60) IU/L Alkaline Phosphatase 46 (42-121) IU/L Total Protein 5.2 L (6.7-8.2) g/dL Albumin 3.0 L (3.2-5.5) g/dL Globulin 2.2 (2.1-4.2) g/dL Albumin/Globulin Ratio 1.4 (1.0-2.2) 02/13/18 02/13/18 Range/Units 17:54 16:07 WBC 9.2 (4.8-10.8) x10^3/uL RBC 3.99 L (4.20-5.40) 10^6/uL Hgb 12.8 (12.0-16.0) g/dL Hct 39.2 (37.0-47.0) % MCV 98.4 (81.0-99.0) fL MCH 32.0 H (27.0-31.0) pg MCHC 32.6 (32.0-36.0) g/dL RDW 13.7 (12.0-15.0) % Plt Count 284 (130-450) 10^3/uL MPV 6.7 L (7.9-10.8) fL Neut # 7.4 H (1.5-6.6) 10^3/uL Lymph # 1.2 L (1.5-3.5) 10^3/uL Schoolcraft # 0.4 (0.0-1.0) 10^3/uL Eos # 0.1 (0.0-0.7) 10^3/uL Baso # 0.1 (0.0-0.1) 10^3/uL Absolute Nucleated RBC 0.00 x10^3/uL Nucleated RBC % 0.0 /100WBC VBG pH (7.31-7.41) Ionized Calcium (1.15-1.33) mmol/L Sodium (135-145) mmol/L Potassium (3.5-5.0) mmol/L Chloride (101-111) mmol/L Carbon Dioxide (21-32) mmol/L Anion Gap (6-13) BUN (6-20) mg/dL Creatinine (0.4-1.0) mg/dL Estimated GFR (MDRD) (>89) Glucose (70-100) mg/dL POC Whole Bld Glucose 105 H (70 - 100) mg/dL Lactic Acid (0.5-2.2) mmol/L Calcium (8.5-10.3) mg/dL Phosphorus (2.5-4.6) mg/dL Magnesium (1.7-2.8) mg/dL Total Bilirubin (0.2-1.0) mg/dL AST (10-42) IU/L ALT (10-60) IU/L Alkaline Phosphatase (42-121) IU/L Total Protein (6.7-8.2) g/dL Albumin (3.2-5.5) g/dL Globulin (2.1-4.2) g/dL Albumin/Globulin Ratio (1.0-2.2) - Current Medications Current Medications: Current Medications Generic Name Dose Route Start Last Admin Trade Name Freq PRN Reason Stop Dose Admin Albuterol/Ipratropium 3 ml 02/12/18 19:00 02/14/18 07:34 Duoneb INH 3 ml RTTID LEAH Administration Albuterol/Ipratropium 3 ml 02/12/18 13:22 02/14/18 01:25 Duoneb INH 3 ml Q2HR PRN Administration Wheezing Benzocaine 1 sprays 02/12/18 09:31 02/12/18 15:12 Hurricaine MM 1 spray Q4HR PRN Administration Mouth Sore Pain Diphenhydramine HCl 25 mg 02/12/18 21:25 02/12/18 21:58 Benadryl Inj IVP 25 mg Q6H PRN Administration Allergy Symptoms Enoxaparin Sodium 30 mg 02/12/18 09:00 02/14/18 11:08 Lovenox SUBQ 30 mg DAILY LEAH Administration Metronidazole 500 mg in 100 mls @ 100 mls/hr 02/10/18 23:45 02/14/18 09:11 Flagyl 500 Mg/100 Ml IV 02/14/18 18:59 Infused Q6HR LEAH Infusion Acetaminophen 100 mls @ 400 mls/hr 02/10/18 23:45 02/14/18 06:35 Ofirmev IV Infused Q6H LEAH Infusion Levofloxacin 250 mg in 50 mls @ 50 mls/hr 02/12/18 16:00 02/13/18 17:25 Levaquin 250 Mg/50 Ml IV Infused Q24H LEAH Infusion Potassium Chloride/Dextrose/Sod Cl 1,000 mls @ 80 mls/hr 02/13/18 07:00 02/13 22:41 D5.45ns W/20 Meq Kcl IV 80 mls/hr .[id number] LEAH Administration Potassium Chloride 10 meq in 100 mls @ 100 mls/hr 02/14/18 08:00 02/14/18 11: 03 Potassium Chloride IV 02/14/18 11:59 100 mls/hr Q1H LEAH Administration Ketorolac Tromethamine 15 mg 02/10/18 23:02 02/12/18 20:09 Toradol Inj IVP 02/15/18 23:01 15 mg Q6H PRN Administration PAIN 1-3/10 Nicotine 1 patch 02/10/18 22:00 02/14/18 11:08 Nicoderm TOP 1 patch DAILY LEAH Administration Ondansetron HCl 4 mg 02/10/18 23:02 02/12/18 20:19 Zofran Inj IVP 4 mg Q6H PRN Administration Nausea / Vomiting Pantoprazole Sodium 40 mg 02/11/18 07:00 02/14/18 06:04 Protonix IVP 40 mg QDAC LEAH Administration Sodium Chloride 10 ml 02/11/18 01:00 02/14/18 11:08 Normal Saline Flush 0.9% IVP Not Given 0100,0900,1700 LEAH Sodium Chloride 10 ml 02/10/18 23:02 02/14/18 06:18 Normal Saline Flush 0.9% IVP 10 ml PRN PRN Administration NEEDED PER PROVIDER ORDERS - Physical Exam Wound/Incisions: positive: Healing well Respiratory: positive: No respiratory distress Cardiovascular: positive: Regular rate & rhythm Abdomen: positive: Non-tender Impression/Plan - Problem List Problem List: s/p laparoscopic omental patch perforated prepyloric ulcer. Ulcer due to Hpylori,smoking, and Nsaids. Doing well without problems. UGI no leak -D/c NGT -start liquids -continue antibiotics for H pylori infection
[2018-02-14] MEDS: D5.45NS W/20 MEQ KCL 1,000 ML IV SCH (14:39)
--- NOTE | 2018-02-14 14:55 | PROVIDER PROGRESS NOTE ---
Assessment/Plan - Problem List (1) Perforated gastric ulcer Qualifiers: Gastric ulcer chronicity: acute Qualified Code(s): K25.1 - Acute gastric ulcer with perforation Assessment/Plan: POD#5. s/p laparoscopic omental patch perforated gastric ulcer Patient stable with stable hb and decreased drainage from NG tube Patient underwent upper GI series today which was negative for extravasation from patch site NG tube removed Patient started on liquid diet per surgery Will advance diet as tolerated and patient will likely be discharged tomorrow Likely cause of ulcer was combo of H pylori infection, smoking and NSAIDs. COntinue IV PPI Continue peripheral iv hydration. CLOtest is positive patient will need treatment for H Pylori with flagyl, PPI and clarithormycin but given patient is NPO will give IV levaquin, IV flagyl and IV PPI till able to take PO meds (2) H. Pylori Assessment/Plan: CLOtest is positive patient will need treatment for H Pylori with flagyl, PPI and clarithormycin but given patient is NPO will give IV levaquin, IV flagyl and IV PPI till able to take PO meds (3) COPD (chronic obstructive pulmonary disease) Assessment/Plan: Continue supportive care and Nicotine patch. (4) Hemoptysis Assessment/Plan: Resolved and may have been from ET tube and ng tube. - Current Meds Current Meds: Current Medications Generic Name Dose Route Start Last Admin Trade Name Freq PRN Reason Stop Dose Admin Albuterol/Ipratropium 3 ml 02/12/18 19:00 02/14/18 13:02 Duoneb INH 3 ml RTTID LEAH Administration Albuterol/Ipratropium 3 ml 02/12/18 13:22 02/14/18 01:25 Duoneb INH 3 ml Q2HR PRN Administration Wheezing Benzocaine 1 sprays 02/12/18 09:31 02/12/18 15:12 Hurricaine MM 1 spray Q4HR PRN Administration Mouth Sore Pain Diphenhydramine HCl 25 mg 02/12/18 21:25 02/12/18 21:58 Benadryl Inj IVP 25 mg Q6H PRN Administration Allergy Symptoms Enoxaparin Sodium 30 mg 02/12/18 09:00 02/14/18 11:08 Lovenox SUBQ 30 mg DAILY LEAH Administration Metronidazole 500 mg in 100 mls @ 100 mls/hr 02/10/18 23:45 02/14/18 13:51 Flagyl 500 Mg/100 Ml IV 02/14/18 18:59 Infused Q6HR LEAH Infusion Acetaminophen 100 mls @ 400 mls/hr 02/10/18 23:45 02/14/18 14:05 Ofirmev IV Infused Q6H LEAH Infusion Levofloxacin 250 mg in 50 mls @ 50 mls/hr 02/12/18 16:00 02/13/18 17:25 Levaquin 250 Mg/50 Ml IV Infused Q24H LEAH Infusion Potassium Chloride/Dextrose/Sod Cl 1,000 mls @ 80 mls/hr 02/13/18 07:00 02/14 14:39 D5.45ns W/20 Meq Kcl IV 80 mls/hr .[id number] LEAH Administration Ketorolac Tromethamine 15 mg 02/10/18 23:02 02/12/18 20:09 Toradol Inj IVP 02/15/18 23:01 15 mg Q6H PRN Administration PAIN 1-3/10 Nicotine 1 patch 02/10/18 22:00 02/14/18 11:08 Nicoderm TOP 1 patch DAILY LEAH Administration Ondansetron HCl 4 mg 02/10/18 23:02 02/12/18 20:19 Zofran Inj IVP 4 mg Q6H PRN Administration Nausea / Vomiting Pantoprazole Sodium 40 mg 02/11/18 07:00 02/14/18 06:04 Protonix IVP 40 mg QDAC LEAH Administration Sodium Chloride 10 ml 02/11/18 01:00 02/14/18 11:08 Normal Saline Flush 0.9% IVP Not Given 0100,0900,1700 LEAH Sodium Chloride 10 ml 02/10/18 23:02 02/14/18 06:18 Normal Saline Flush 0.9% IVP 10 ml PRN PRN Administration NEEDED PER PROVIDER ORDERS - Lab Result Lab results reviewed: Yes Fish Bone Diagrams: 02/14/18 05:00 02/14/18 05:00 - Diagnostic Imaging Results Diagnostic Imaging Results: Final report reviewed - Additional Planning Condition/Complexity: Improved Consult/Specialty: Surgery Plan Discussed with:: Patient Time Spent: 31-60 minutes Subjective - Subjective Patient Reports: Feeling Better, No Complaints, Other (She states she is able to ambulate with walker and feels good.) Nursing Reports: No Complaints Objective Vital Signs: Vital Signs - 24 hr 02/13/18 02/13/18 02/13/18 15:00 19:00 22:40 Temperature 36.9 C 36.8 C Heart Rate 86 Heart Rate [ 86 85 Monitoring electrodes] Respiratory 16 16 16 Rate Blood Pressure 148/57 H 145/70 H [Left Brachial artery] Blood Pressure [Right Brachial artery] O2 Saturation 100 94 02/14/18 02/14/18 02/14/18 00:50 01:25 06:55 Temperature 37.0 C 36.7 C Heart Rate 77 Heart Rate [ 74 88 Monitoring electrodes] Respiratory 16 18 16 Rate Blood Pressure [Left Brachial artery] Blood Pressure 151/67 H 145/63 H [Right Brachial artery] O2 Saturation 94 94 02/14/18 02/14/18 02/14/18 07:34 08:13 13:02 Temperature 36.7 C Heart Rate 88 74 Heart Rate [ 81 Monitoring electrodes] Respiratory 20 14 18 Rate Blood Pressure 131/61 H [Left Brachial artery] Blood Pressure [Right Brachial artery] O2 Saturation 96 Oxygen O2 Source Room air I&O (Last 24 Hrs): Intake and Output Totals x24h 02/12/18 02/13/18 02/14/18 23:59 23:59 23:59 Intake Total 2707.000 2404 2300 Output Total 2415 50 100 Balance 006.206 0084 2200 General: Alert, Oriented x3, Cooperative, Other (NG tube in place) HEENT: Atraumatic, PERRLA, EOMI, Mucous membr. moist/pink Neck: Supple, No JVD, No thyromegaly, +2 carotid pulse wo bruit, No LAD Lymphatic: no adenopathy Neuro: Alert, Non Focal, CN 2-12 Grossly Intact, Oriented Times 3 Cardiovascular: Regular rate, Normal S1, Normal S2, No murmurs Respiratory: Chest non-tender, No respiratory distress, Breath sounds nml Abdomen: Normal bowel sounds, Soft, No tenderness, No hepatospenomegaly Extremities: No clubbing, No cyanosis, No edema, Normal pulses Skin: No rashes, No breakdown - Results Results: Laboratory Results WBC 8.2 x10^3/uL (4.8-10.8) 02/14/18 05:00 RBC 4.00 10^6/uL (4.20-5.40) L 02/14/18 05:00 Hgb 13.1 g/dL (12.0-16.0) 02/14/18 05:00 Hct 38.8 % (37.0-47.0) 02/14/18 05:00 MCV 97.0 fL (81.0-99.0) 02/14/18 05:00 MCH 32.7 pg (27.0-31.0) H 02/14/18 05:00 MCHC 33.8 g/dL (32.0-36.0) 02/14/18 05:00 RDW 13.4 % (12.0-15.0) 02/14/18 05:00 Plt Count 298 10^3/uL (130-450) 02/14/18 05:00 MPV 6.8 fL (7.9-10.8) L 02/14/18 05:00 Neut # 7.4 10^3/uL (1.5-6.6) H 02/13/18 17:54 Lymph # 1.2 10^3/uL (1.5-3.5) L 02/13/18 17:54 [place] # 0.4 10^3/uL (0.0-1.0) 02/13/18 17:54 Eos # 0.1 10^3/uL (0.0-0.7) 02/13/18 17:54 Baso # 0.1 10^3/uL (0.0-0.1) 02/13/18 17:54 Absolute Nucleated RBC 0.00 x10^3/uL 02/13/18 17:54 Nucleated RBC % 0.0 /100WBC 02/13/18 17:54 VBG pH 7.432 (7.31-7.41) H 02/13/18 17:54 Ionized Calcium 1.01 mmol/L (1.15-1.33) L 02/13/18 17:54 Sodium 135 mmol/L (135-145) 02/14/18 05:00 Potassium 3.1 mmol/L (3.5-5.0) L 02/14/18 05:00 Chloride 105 mmol/L (101-111) 02/14/18 05:00 Carbon Dioxide 24 mmol/L (21-32) 02/14/18 05:00 Anion Gap 6.0 (6-13) 02/14/18 05:00 BUN 7 mg/dL (6-20) 02/14/18 05:00 Creatinine 0.4 mg/dL (0.4-1.0) 02/14/18 05:00 Estimated GFR (MDRD) 155 (>89) 02/14/18 05:00 Glucose 131 mg/dL (70-100) H 02/14/18 05:00 POC Whole Bld Glucose 105 mg/dL (70 - 100) H 02/13/18 16:07 Lactic Acid 1.0 mmol/L (0.5-2.2) 02/13/18 17:54 Calcium 7.7 mg/dL (8.5-10.3) L 02/14/18 05:00 Ionized Calcium YES 02/13/18 17:54 Phosphorus 1.8 mg/dL (2.5-4.6) L 02/13/18 17:54 Magnesium 1.9 mg/dL (1.7-2.8) 02/13/18 17:54 Total Bilirubin 0.3 mg/dL (0.2-1.0) 02/13/18 17:54 AST 19 IU/L (10-42) 02/13/18 17:54 ALT 14 IU/L (10-60) 02/13/18 17:54 Alkaline Phosphatase 46 IU/L (42-121) 02/13/18 17:54 B-Natriuretic Peptide 321 pg/mL (5-100) H 02/12/18 04:40 Total Protein 5.2 g/dL (6.7-8.2) L 02/13/18 17:54 Albumin 3.0 g/dL (3.2-5.5) L 02/13/18 17:54 Globulin 2.2 g/dL (2.1-4.2) 02/13/18 17:54 Albumin/Globulin Ratio 1.4 (1.0-2.2) 02/13/18 17:54 Lipase 20 U/L (22-51) L 02/10/18 17:30 Urine Color YELLOW 02/10/18 18:03 Urine Clarity HAZY (CLEAR) 02/10/18 18:03 Urine pH 6.5 PH (5.0-7.5) 02/10/18 18:03 Ur Specific [place] 1.015 (1.002-1.030) 02/10/18 18:03 Urine Protein NEGATIVE mg/dL (NEGATIVE) 02/10/18 18:03 Urine Glucose (UA) NEGATIVE mg/dL (NEGATIVE) 02/10/18 18:03 Urine Ketones NEGATIVE mg/dL (NEGATIVE) 02/10/18 18:03 Urine Occult Blood NEGATIVE (NEGATIVE) 02/10/18 18:03 Urine Nitrite NEGATIVE (NEGATIVE) 02/10/18 18:03 Urine Bilirubin NEGATIVE (NEGATIVE) 02/10/18 18:03 Urine Urobilinogen 0.2 (NORMAL) E.U./dL (NORMAL) 02/10/18 18:03 Ur Leukocyte Esterase NEGATIVE (NEGATIVE) 02/10/18 18:03 Urine RBC 0-5 /HPF (0-5) 02/10/18 18:03 Urine WBC 4-5 /HPF (0-5) 02/10/18 18:03 Ur Squamous Epith Cells MANY Squamous (<= Few) H 02/10/18 18:03 Urine Bacteria Many /HPF (None Seen) H 02/10/18 18:03 Ur Microscopic Review INDICATED 02/10/18 18:03 Urine Culture Comments NOT INDICATED 02/10/18 18:03 Blood Type O POSITIVE 02/10/18 19:58 Blood Type Recheck O POSITIVE 02/10/18 17:30 Antibody Screen NEGATIVE 02/10/18 19:58 - Procedures Procedures: Procedures CATARAC PHACOEMULS/ASPIR (04/24/13) INSERT LENS AT CATAR EXT (04/24/13) REPLACEMENT OF LEFT LENS WITH SYNTH SUB, PERC APPROACH (09/23/15)
[2018-02-15] MEDS: SODIUM CHLORIDE FLUSH 0.9% 10 ML SYRINGE IVP SCH ×2 (00:31→11:03)
[2018-02-15] MEDS ORDERED: HYDROcod/ACETAM 5/325 MG TABLET PO PRN (01:47)
[2018-02-15] MEDS: ACETAMINOPHEN 1,000 MG/100 ML 100 ML IV SCH (02:12)
[2018-02-15] MEDS: PANTOPRAZOLE 40 MG TABLET PO SCH ×2 (03:32→05:25)
[2018-02-15 05:31] LABS: HGB - HEMOGLOBIN 13.4 g/dL (12.0-16.0); MEAN CORPUSCULAR HEMOGLOBIN 32.1 pg (27.0-31.0); MEAN CORPUSCULAR VOLUME 97.5 fL (81.0-99.0); MEAN PLATELET VOLUME 6.7 fL (7.9-10.8); RED BLOOD COUNT 4.16 10^6/uL (4.20-5.40); RED CELL DISTRIBUTION WIDTH 13.8 % (12.0-15.0); WHITE BLOOD COUNT 9.2 x10^3/uL (4.8-10.8)
[2018-02-15 05:39] LABS: CALCIUM 8.2 mg/dL (8.5-10.3); CREATININE 0.4 mg/dL (0.4-1.0)
[2018-02-15 07:59] VITALS: BP 139/72
[2018-02-15] MEDS ORDERED: HYDROmorphone 0.5 MG/0.5 ML SYRINGE IVP PRN (08:25)
--- NOTE | 2018-02-15 09:06 | Discharge Plan ---
Discharge Plan Disposition: Home, Self Care Condition: Stable Prescriptions: HYDROcod/ACETAM 5/325 [[place] 5/325] 1 tab PO Q4HR PRN #20 tablet PRN Reason: Pain Clarithromycin 250 mg PO BID #14 tablet Metronidazole [Flagyl] 500 mg PO BID #14 tablet Omeprazole [PriLOSEC] 40 mg PO DAILY #30 Diet: Soft (low acid) Activity Restrictions: no lifting over 15 lbs Shower Restrictions: Yes (May remove dressing in 2 days and shower) Driving Restrictions: Yes Weight Bearing: Full Weight No Smoking: If you smoke, Please STOP! Call for help. Follow-up with: Diego Hammer MD [Provider Admit Priv/Credential] - 1 Week
[2018-02-15] MEDS: IPRATROPIUM/ALBUTEROL 3 ML NEB INH SCH (09:38)
[2018-02-15] MEDS: NICOTINE 21 MG PATCH TOP SCH (11:03)
[2018-02-15] MEDS: ENOXAPARIN 30 MG/0.3 ML SYRINGE SUBQ SCH (11:03)
--- NOTE | 2018-02-15 12:00 | DISCHARGE SUMMARY ---
"Discharge Summary Admit Date: 02/08/18 Discharge Date: 02/15/18 Discharging Provider: Roscoe Arroyo MD Primary Care Provider: None Code Status: Attempt Resuscitation Condition at Discharge: Stable Discharge Disposition: 01 Home, Self Care - DIAGNOSES Admission Diagnoses: 1. Perforated abdominal viscus 2. COPD Discharge Diagnoses with Status of Each Condition: 1. Acute gastric ulcer with perforation: Improving 2. Helicobacter pylori: Stable 3. COPD: Stable 4. Hemoptysis: Resolved - HPI History of Present Illness: Mrs. Alison Javed is a pleasant 77-year-old lady who unfortunately has been having some abdominal pain over the last several days. Her son lives out of town and relates that she has been come complaining of dyspepsia and constipation for about 4 days. He also notes that a few weeks ago the patient began complaining of not feeling right and she has not gotten back to her baseline since then. In part because of her recent complaints her son came to see her today and while he was visiting the patient complained of some significant abdominal pain. She took some aspirin and laid down but the pain continued to worsen and so the son brought her to the [facility] emergency department where it was found that she has a perforated bowel. Mrs. Javed also has a long history of COPD and continues to smoke despite this. The patient has been taken to the operating room for surgical repair and will be admitted to the intensive care unit following her surgery. - CONSULTS | PROCEDURES Consultations: Surgery Procedures: Laparoscopic omental patch perforated gastric ulcer - HOSPITAL COURSE Hospital Course: (1) Perforated gastric ulcer Qualifiers: Gastric ulcer chronicity: acute Qualified Code(s): K25.1 - Acute gastric ulcer with perforation Assessment/Plan: Patient was taken to OR and underwent laparoscopic omental patch perforated gastric ulcer on 02/10/18 Patient stable with stable hb and decreased drainage from NG tube Patient underwent upper GI series on 02/14/18 which was negative for extravasation from patch site NG tube was removed Patient started on liquid diet and then advanced to regular diet which she tolerated well Likely cause of ulcer was combo of H pylori infection, smoking and NSAIDs. Treated with IV PPI, IVFs throughout hospitalization CLOtest was positive patient treated for H Pylori with flagyl, PPI and clarithormycin at discharge but given patient was NPO during hospitalization she was given IV levaquin, IV flagyl and IV PPI (2) H. Pylori Assessment/Plan: CLOtest was positive and antrum biopsy results show he will Dr. pylori gastritis patient will need treatment for H Pylori with flagyl, PPI and clarithormycin at discharge but given patient was NPO she was given IV levaquin , IV flagyl and IV PPI during hospital stay Patient will need 14 days of treatment and will follow up with surgery as an outpatient (3) COPD (chronic obstructive pulmonary disease) Assessment/Plan: Stable (4) Hemoptysis Assessment/Plan: Resolved and may have been from ET tube and ng tube. Patient also given counselling on need to stop smoking and she stated she will not smoke anymore. She was also advised not to take NSAIDs. - ALLERGIES Allergies/Adverse Reactions: Allergies Allergy/AdvReac Type Severity Reaction Status Date / Time Penicillins Allergy Severe shock Verified 02/10/18 16:59 venom-honey bee Allergy unknown Verified 02/10/18 16:59 [bee venom (honey bee)] alcohol AdvReac unknown Verified 02/10/18 16:59 - MEDICATIONS Home Medications: Ambulatory Orders Medication Instructions Recorded Confirmed Multivitamin [Multivitamins] 1 each PO DAILY 04/23/13 02/11/18 Ipratropium/Albuterol Inhaler 2 puffs INH Q6H 04/24/13 02/11/18 [Combivent Inhaler] [place]-3 Fatty Acids [Fish Oil] 1,200 mg PO DAILY 09/22/15 02/11/18 Ipratropium/Albuterol [Duoneb] 3 ml INH RTTID 02/11/18 02/11/18 Clarithromycin 250 mg PO BID #14 tablet 02/15/18 HYDROcod/ACETAM 5/325 [[place] 5/325] 1 tab PO Q4HR PRN #20 tablet 02/15/18 Metronidazole [Flagyl] 500 mg PO BID #14 tablet 02/15/18 Omeprazole [PriLOSEC] 40 mg PO DAILY #30 02/15/18 - PHYSICAL EXAM AT DISCHARGE General Appearance: positive: No acute distress, Alert, Other (Very thin and frail) Eyes Bilateral: positive: Normal inspection, PERRL, EOMI, No lid inflammation, Conjunctivae nml, No scleral icterus ENT: positive: ENT inspection nml, Pharynx nml, No signs of dehydration. negative: Purulent nasal drainage, Pharyngeal erythema, Oral lesions Neck: positive: Nml inspection, Thyroid nml, No JVD, Trachea midline. negative : Thyromegaly, Lymphadenopathy (R), Lymphadenopathy (L), Carotid bruit, Tracheal deviation Respiratory: positive: Chest non-tender, No respiratory distress, Breath sounds nml. negative: Wheezes, Rales, Rhonchi Cardiovascular: positive: Regular rate & rhythm, No murmur, No gallop Peripheral Pulses: positive: 2+ Abdomen: positive: Non-tender, No organomegaly, Nml bowel sounds, No distention. negative: Guarding, Rebound, Hepatomegaly Back: positive: Nml inspection. negative: CVA tenderness (R), CVA tenderness (L ) Skin: positive: Color nml, No rash, Warm. negative: Cyanosis, Diaphoresis, Pallor Extremities: positive: Non-tender, Full ROM, Nml appearance, No pedal edema Neurologic/Psychiatric: positive: Oriented x3, CN's nml (2-12), Motor nml, Sensation nml, Mood/affect nml - LABS Result Diagrams: 02/15/18 05:10 02/15/18 05:10 Other Lab Results: Laboratory Results WBC 9.2 x10^3/uL (4.8-10.8) 02/15/18 05:10 RBC 4.16 10^6/uL (4.20-5.40) L 02/15/18 05:10 Hgb 13.4 g/dL (12.0-16.0) 02/15/18 05:10 Hct 40.6 % (37.0-47.0) 02/15/18 05:10 MCV 97.5 fL (81.0-99.0) 02/15/18 05:10 MCH 32.1 pg (27.0-31.0) H 02/15/18 05:10 MCHC 33.0 g/dL (32.0-36.0) 02/15/18 05:10 RDW 13.8 % (12.0-15.0) 02/15/18 05:10 Plt Count 328 10^3/uL (130-450) 02/15/18 05:10 MPV 6.7 fL (7.9-10.8) L 02/15/18 05:10 Neut # 7.4 10^3/uL (1.5-6.6) H 02/13/18 17:54 Lymph # 1.2 10^3/uL (1.5-3.5) L 02/13/18 17:54 [place] # 0.4 10^3/uL (0.0-1.0) 02/13/18 17:54 Eos # 0.1 10^3/uL (0.0-0.7) 02/13/18 17:54 Baso # 0.1 10^3/uL (0.0-0.1) 02/13/18 17:54 Absolute Nucleated RBC 0.00 x10^3/uL 02/13/18 17:54 Nucleated RBC % 0.0 /100WBC 02/13/18 17:54 VBG pH 7.432 (7.31-7.41) H 02/13/18 17:54 Ionized Calcium 1.01 mmol/L (1.15-1.33) L 02/13/18 17:54 Sodium 136 mmol/L (135-145) 02/15/18 05:10 Potassium 3.6 mmol/L (3.5-5.0) 02/15/18 05:10 Chloride 106 mmol/L (101-111) 02/15/18 05:10 Carbon Dioxide 24 mmol/L (21-32) 02/15/18 05:10 Anion Gap 6.0 (6-13) 02/15/18 05:10 BUN 8 mg/dL (6-20) 02/15/18 05:10 Creatinine 0.4 mg/dL (0.4-1.0) 02/15/18 05:10 Estimated GFR (MDRD) 155 (>89) 02/15/18 05:10 Glucose 95 mg/dL (70-100) 02/15/18 05:10 POC Whole Bld Glucose 105 mg/dL (70 - 100) H 02/13/18 16:07 Lactic Acid 1.0 mmol/L (0.5-2.2) 02/13/18 17:54 Calcium 8.2 mg/dL (8.5-10.3) L 02/15/18 05:10 Ionized Calcium YES 02/13/18 17:54 Phosphorus 1.8 mg/dL (2.5-4.6) L 02/13/18 17:54 Magnesium 1.9 mg/dL (1.7-2.8) 02/13/18 17:54 Total Bilirubin 0.3 mg/dL (0.2-1.0) 02/13/18 17:54 AST 19 IU/L (10-42) 02/13/18 17:54 ALT 14 IU/L (10-60) 02/13/18 17:54 Alkaline Phosphatase 46 IU/L (42-121) 02/13/18 17:54 B-Natriuretic Peptide 321 pg/mL (5-100) H 02/12/18 04:40 Total Protein 5.2 g/dL (6.7-8.2) L 02/13/18 17:54 Albumin 3.0 g/dL (3.2-5.5) L 02/13/18 17:54 Globulin 2.2 g/dL (2.1-4.2) 02/13/18 17:54 Albumin/Globulin Ratio 1.4 (1.0-2.2) 02/13/18 17:54 Lipase 20 U/L (22-51) L 02/10/18 17:30 Urine Color YELLOW 02/10/18 18:03 Urine Clarity HAZY (CLEAR) 02/10/18 18:03 Urine pH 6.5 PH (5.0-7.5) 02/10/18 18:03 Ur Specific [place] 1.015 (1.002-1.030) 02/10/18 18:03 Urine Protein NEGATIVE mg/dL (NEGATIVE) 02/10/18 18:03 Urine Glucose (UA) NEGATIVE mg/dL (NEGATIVE) 02/10/18 18:03 Urine Ketones NEGATIVE mg/dL (NEGATIVE) 02/10/18 18:03 Urine Occult Blood NEGATIVE (NEGATIVE) 02/10/18 18:03 Urine Nitrite NEGATIVE (NEGATIVE) 02/10/18 18:03 Urine Bilirubin NEGATIVE (NEGATIVE) 02/10/18 18:03 Urine Urobilinogen 0.2 (NORMAL) E.U./dL (NORMAL) 02/10/18 18:03 Ur Leukocyte Esterase NEGATIVE (NEGATIVE) 02/10/18 18:03 Urine RBC 0-5 /HPF (0-5) 02/10/18 18:03 Urine WBC 4-5 /HPF (0-5) 02/10/18 18:03 Ur Squamous Epith Cells MANY Squamous (<= Few) H 02/10/18 18:03 Urine Bacteria Many /HPF (None Seen) H 02/10/18 18:03 Ur Microscopic Review INDICATED 02/10/18 18:03 Urine Culture Comments NOT INDICATED 02/10/18 18:03 Blood Type O POSITIVE 02/10/18 19:58 Blood Type Recheck O POSITIVE 02/10/18 17:30 Antibody Screen NEGATIVE 02/10/18 19:58 - DIAGNOSTIC IMAGING Diagnostic Imaging Results: Final report reviewed Diagnostic Imaging Results Comments: EXAM: [id number] FL/UGIWO ([id number]) UPPER GI: 02/14/2018 CLINICAL INDICATION: Status post repair of perforated prepyloric ulcer. FINDINGS: Initial hand cigar maker view of the abdomen demonstrates residual contrast in the colon from previous CT. Surgical drain and nasogastric tube are noted. The nasogastric tube was injected, first with Gastrografin, then with thin barium. The proximal and mid portions of the stomach demonstrate a normal fold pattern. The distal stomach is deformed, likely postsurgical in nature. Contrast passes freely through the distal stomach and into the proximal small bowel with no evidence of contrast extravasation. IMPRESSION: NO EVIDENCE OF CONTRAST EXTRAVASATION FROM PATCHED ULCER. EXAM: [id number] XR/CXR1VW ([id number]) EXAM: CHEST RADIOGRAPHY EXAM DATE: 02/13/2018 07:44 AM. CLINICAL HISTORY: NG tube placement. COMPARISON: 02/12/2018. 02/11/2018. TECHNIQUE: 1 view. FINDINGS: Lungs/Pleura: Left basilar opacity. Small pleural effusions. No pneumothorax. Mediastinum: Heart size and mediastinal contour are stable. Other: Orogastric tube again seen with the distal portion not visualized as it extends into the upper abdomen. Healed left-sided rib fracture. Left shoulder calcific tendinosis. IMPRESSION: 1. Left basilar consolidation/atelectasis with improvement. 2. Small pleural effusions. 3. Orogastric tube present extending into the upper abdomen although the tip is not visualized. EXAM: [id number] CT/ABPEW ([id number]) EXAM: CT ABDOMEN AND PELVIS EXAM DATE: 02/10/2018 06:24 PM. CLINICAL HISTORY: Diffuse abdominal pain COMPARISONS: 07/10/2015. TECHNIQUE: Routine helical CT imaging was performed through the abdomen and pelvis. IV contrast: 100 mL Isovue-300. Enteric contrast: Yes. Reconstructions: Coronal and sagittal. In accordance with CT protocol optimization, one or more of the following dose reduction techniques were utilized for this exam: automated exposure control, adjustment of mA and/or KV based on patient size, or use of iterative reconstructive technique. FINDINGS: Lung Bases: Unremarkable. Liver: Similar distribution of innumerable tiny cystic foci scattered throughout the liver. Gallbladder/Bile Ducts: No gallbladder distention or visualized stones. Unchanged borderline dilated CBD measuring 7 mm (upper limits normal 6 mm), not unusual at this patient's age. Spleen: Normal. Pancreas: Normal. Adrenal Glands: Normal. Kidneys and Ureters: Multiple small bilateral renal cysts. Mild right hydronephrosis extending to the renal pelvis, without evident obstructing lesion or stone. Peritoneal Cavity/Bowel: Small volume scattered pneumoperitoneum, most pronounced beneath the hemidiaphragms. Enteric contrast reaches the mid small bowel. Pancolonic diverticulosis. Limited evaluation of the colon wall due to marked paucity of intra-abdominal fat and absence of enteric contrast in the area. No convincing focal colon wall thickening. No focal extravasation of enteric contrast is seen. Scattered mildly dilated loops of small bowel interspersed with normal caliber loops, likely representing ileus. The appendix is not seen. Pelvic Organs: The bladder and visualized pelvic organs are within normal limits. Vasculature: Extensive atherosclerotic calcifications within the aorta and iliac arteries. Bones: Mild right convex curvature centered at L2-L3. Moderate to severe multilevel facet arthropathy in the mid/lower lumbar spine with unchanged associated grade 1 anterolisthesis at L4- L5. No acute bony abnormality. Other: None. IMPRESSION: 1. Small volume pneumoperitoneum indicating hollow viscus perforation. The site of perforation is not identified. Evaluation is limited by marked paucity of intra-abdominal fat. 2. Pancolonic diverticulosis. No convincing area of focal colon wall thickening. - FOLLOW UP Follow Up: Patient to follow-up with surgery after repair of the perforated gastric ulcer and finding of H. pylori gastritis which she will have treated with a PPI, clarithromycin and Flagyl for 14 days. - TIME SPENT Time Spent in Discharge (Minutes): 40"
--- NOTE | 2018-03-07 20:44 | PROVIDER PROGRESS NOTE ---
Subjective - General Admit Date: 02/10/18 - Review of Systems Wound/Incisions: positive: Healing well General: positive: No symptoms Gastrointestinal: positive: No symptoms Psychiatric: positive: Confusion All Other Systems: positive: Reviewed and negative Objective - Lab Results Lab Results: 02/15/18 05:10 02/15/18 05:10 - Physical Exam Wound/Incisions: positive: Healing well Abdomen: positive: Non-tender Impression/Plan - Problem List Problem List: s/p laparoscopic repair perforated gastric ulcer. No leak on ugi. Tolerating diet. -d/c home Hpylori infection - continue antibiotics, PPIs
== END 2018-02-15 12:52 | disposition home or self-care (01) | DRG 329 ==
LOC: ED 16:44 → ICU 19:50 → MS2 02-12 15:46
PROVIDERS: ADMIT Surgery; ATTEND Internal Medicine
PROC: 0DU947Z Supplement Duodenum with Autologous Tissue Substitute, Percutaneous Endoscopic Approach (ICD-10-PCS; principal; 2018-02-10 19:51)
PROC: 0DB78ZX Excision of Stomach, Pylorus, Via Natural or Artificial Opening Endoscopic, Diagnostic (ICD-10-PCS; 2018-02-10 19:51)
DX: K65.9 Peritonitis, unspecified (principal); R93.5 Abnormal findings on diagnostic imaging of other abdominal regions, including retroperitoneum; J44.9 Chronic obstructive pulmonary disease, unspecified; K25.1 Acute gastric ulcer with perforation; K65.0 Generalized (acute) peritonitis; R04.2 Hemoptysis; K29.70 Gastritis, unspecified, without bleeding; B96.81 Helicobacter pylori [H. pylori] as the cause of diseases classified elsewhere; T39.015A Adverse effect of aspirin, initial encounter; J43.9 Emphysema, unspecified; F17.210 Nicotine dependence, cigarettes, uncomplicated; K21.9 Gastro-esophageal reflux disease without esophagitis; K59.00 Constipation, unspecified; K44.9 Diaphragmatic hernia without obstruction or gangrene; Z88.0 Allergy status to penicillin; Z79.899 Other long term (current) drug therapy; Z78.1 Physical restraint status
CPT/HCPCS: 36415; 71045; 74177; 74240; 80048; 80053; 81001; 81003; 82330; 83605; 83690; 83735; 83880; 84100; 85025; 86850; 86900; 86901; 87070; 87075; 87081; 87086; 87150; 87205; 88305; 88342; 94640; 96365; 96368; 96375; 99284; 99285

== ENCOUNTER 2018-04-13 07:11 | Day surgery (SDC) | payer MEDICARE, OTHER ==
[2018-04-13] MEDS ORDERED: LACTATED RINGERS 1,000 ML IV ONE (07:30)
[2018-04-13] MEDS ORDERED: LIDO GARGLE 30 ML BOTTLE PO ONE (09:00)
[2018-04-13] MEDS ORDERED: LIDO GARGLE 30 ML BOTTLE ONE (09:02)
[2018-04-13] MEDS ORDERED: PROPOFOL 1000 MG/100 ML IV ONE (10:00)
[2018-04-13] MEDS ORDERED: LIDOCAINE-MPF 2% 5 ML VIAL IM ONE (10:00)
[2018-04-13 10:13] VITALS: BP 107/57
== END 2018-04-13 07:12 | disposition home or self-care (01) ==
LOC: SDS 07:11
PROVIDERS: ATTEND Surgery
PROC: 0DB48ZX Excision of Esophagogastric Junction, Via Natural or Artificial Opening Endoscopic, Diagnostic (ICD-10-PCS; 2018-04-13)
PROC: 0DB78ZX Excision of Stomach, Pylorus, Via Natural or Artificial Opening Endoscopic, Diagnostic (ICD-10-PCS; 2018-04-13)
PROC: 0DBK8ZX Excision of Ascending Colon, Via Natural or Artificial Opening Endoscopic, Diagnostic (ICD-10-PCS; principal; 2018-04-13 08:45)
PROC: 0DBP8ZX Excision of Rectum, Via Natural or Artificial Opening Endoscopic, Diagnostic (ICD-10-PCS; 2018-04-13 08:45)
DX: Z12.11 Encounter for screening for malignant neoplasm of colon (principal); D12.2 Benign neoplasm of ascending colon; K57.30 Diverticulosis of large intestine without perforation or abscess without bleeding; K63.5 Polyp of colon; K20.9 Esophagitis, unspecified; F17.210 Nicotine dependence, cigarettes, uncomplicated
CPT/HCPCS: 43239; 45380; A9270; J7120; 88305